=== PATIENT | female | born 1935 | race Caucasian/White ===

== ENCOUNTER → 2016-09-24 | Outpatient (CLI) | payer MEDICARE, OTHER | LOC: RAD 15:15 | PROVIDERS: ATTEND Internal Medicine | DX: C34.31 Malignant neoplasm of lower lobe, right bronchus or lung (principal) | CPT/HCPCS: 78815; A9552 ==

== ENCOUNTER → 2016-12-22 | Outpatient (CLI) | payer MEDICARE, OTHER | LOC: RAD 07:14 | PROVIDERS: ATTEND Internal Medicine | DX: C34.31 Malignant neoplasm of lower lobe, right bronchus or lung (principal) | CPT/HCPCS: 71250 ==

== ENCOUNTER → 2017-01-14 | Outpatient (CLI) | payer MEDICARE, OTHER ==
--- NOTE | 2017-01-15 09:09 | RADIOLOGY REPORT (SQ) ---
EXAM DESCRIPTION: PET CT SKULL/THIGH COMPLETED DATE/TIME: 01/14/2017 8:12 pm REASON FOR STUDY: LUNG CANCER C34.31 MALIGNANT NEOPLASM OF LOWER LOBE, RIGHT BRONCHUS OR L COMPARISON: PET-CT 09/24/2016, 06/18/2016, 02/13/2016 CT chest 12/22/2016 RADIONUCLIDE AND DOSE: 10 mCi F18 FDG The route of agent administration: Intravenous FASTING BLOOD SUGAR: 94 mg/dl CONTRAST TYPE AND DOSE: No CT contrast given. TECHNIQUE: Blood glucose level was verified. Above dose of FDG was injected intravenously. 2-D seg mented attenuation correction images were obtained from the base of the skull to the midthighs. Nonc ontrast CT images were obtained for attenuation correction and fusion with emission images. CT image s were performed without oral or intravenous contrast and are not sensitive for parenchymal lesions. A series of overlapping emission PET images were obtained. Images reviewed and manipulated at [facility] work station by the radiologist. Images stored on PACS. LIMITATIONS: None. FINDINGS: HEAD AND NECK: No areas of abnormal metabolic activity in the soft tissues of the head and neck. Non metabolic 3 x 2.4 cm left lower pole thyroid nodule. CHEST: Patient has an area of lung base consolidation with adjacent radiotherapy treatment markers ju st above the right hemidiaphragm. This area has SUV of 2.2 which is similar compared to prior PET-CT 09/24/2016. There is a 12 mm nodule just above the right hemidiaphragm in the right posterior costophrenic sulcus on image 104. This is non metabolic. There is an new 9 mm nodule in the posterior aspect right upper lobe on axial image 69 with SUV 2.8. No right or left pleural effusions. No pneumothorax. No hilar or mediastinal metabolic adenopathy. Heavily calcified aortic valve, coronary arteries, and thoracic aorta. ABDOMEN AND PELVIS: No areas of abnormal metabolic activity in the abdomen or pelvis. Expected physi ologic activity is present in the genitourinary system and bowel. PROXIMAL LOWER EXTREMITIES: No areas of abnormal metabolic activity in the soft tissues of the lower extremities. BONES: No increased metabolic activity over the skeletal system worrisome for metastatic disease ADDITIONAL CT FINDINGS: Old kyphoplasties in the lower thoracic spine, calcified gallstones, hysterec veronica, colon diverticuli, atherosclerotic abdominal aortic calcification. Old cervical fusion hardwar e. OTHER: Blood pool activity SUV 1.9, liver activity SUV 2.4 IMPRESSION: Similar appearance of the post radiotherapy treatment changes in the right lower lobe. Fuzzy 9 mm alveolar nodule axial image 69 with SUV 2.8. This would be difficult to biopsy under CT g uidance due to its close proximity to the scapula. This is larger than on 09/24/2016 with increased a ctivity as compared to prior PET-CT. Non metabolic 12 mm nodule just above the right hemidiaphragm TECHNICAL DOCUMENTATION: JOB ID: [id number] [employer]- All Rights Reserved
== END ==
LOC: RAD 17:25
PROVIDERS: ATTEND Internal Medicine
DX: C34.31 Malignant neoplasm of lower lobe, right bronchus or lung (principal)
CPT/HCPCS: 78815; A9552

== ENCOUNTER → 2017-04-29 | Outpatient (CLI) | payer MEDICARE, OTHER ==
--- NOTE | 2017-04-30 09:36 | RADIOLOGY REPORT (SQ) ---
EXAM DESCRIPTION: PET CT SKULL/THIGH COMPLETED DATE/TIME: 04/29/2017 9:25 pm REASON FOR STUDY: LUNG CANCER C34.31 MALIGNANT NEOPLASM OF LOWER LOBE, RIGHT BRONCHUS OR L COMPARISON: 01/14/2017, 09/24/2016, and 06/18/2016. RADIONUCLIDE AND DOSE: 11.07 mCi F18 FDG The route of agent administration: Intravenous FASTING BLOOD SUGAR: 123 mg/dl CONTRAST TYPE AND DOSE: No CT contrast given. TECHNIQUE: Blood glucose level was verified. Above dose of FDG was injected intravenously. 2-D seg mented attenuation correction images were obtained from the base of the skull to the midthighs. Nonc ontrast CT images were obtained for attenuation correction and fusion with emission images. CT image s were performed without oral or intravenous contrast and are not sensitive for parenchymal lesions. A series of overlapping emission PET images were obtained. Images reviewed and manipulated at [facility] work station by the radiologist. Images stored on PACS. LIMITATIONS: None. FINDINGS: HEAD AND NECK: No areas of abnormal metabolic activity in the soft tissues of the head and neck. CHEST: Again seen is a 9 mm nodule in the posterior right upper lobe with mean SUV 2.28. Prior value 2.8. Stable nodule in the right lung base at the costophrenic sulcus, non metabolic. Stable post t reatment changes in the right lower lobe with mean SUV value 1.57. Prior value 2.2. No new pulmonar y lesions. ABDOMEN AND PELVIS: No areas of abnormal metabolic activity in the abdomen or pelvis. Expected physi ologic activity is present in the genitourinary system and bowel. PROXIMAL LOWER EXTREMITIES: No areas of abnormal metabolic activity in the soft tissues of the lower extremities. BONES: No abnormal metabolic activity in the visualized skeleton. ADDITIONAL CT FINDINGS: Stable non metabolic nodule in the left lobe of the thyroid with coarse calci fications. Gallstones. Colonic diverticulosis. Surgical changes in the spine with hardware and sima or kyphoplasty. OTHER: No other significant findings. IMPRESSION: 1. STABLE APPEARANCE OF THE CHEST. POST TREATMENT CHANGES IN THE RIGHT LOWER LOBE UNCHANGED. PREVIO USLY DESCRIBED 9 MM NODULE IN THE RIGHT UPPER LOBE ALSO UNCHANGED. NO PROGRESSION OR NEW LESIONS IN THE CHEST. 2. NO ABNORMAL FINDINGS ON PET IMAGING OF THE HEAD, NECK, ABDOMEN, OR PELVIS. 3. OTHER CT FINDINGS ABOVE ARE STABLE. TECHNICAL DOCUMENTATION: JOB ID: [id number] [facility] [employer]- All Rights Reserved
== END ==
LOC: RAD 16:43
PROVIDERS: ATTEND Internal Medicine
DX: C34.31 Malignant neoplasm of lower lobe, right bronchus or lung (principal)
CPT/HCPCS: 78815; A9552

== ENCOUNTER → 2017-05-15 | Outpatient (CLI) | payer MEDICARE, OTHER ==
[2017-05-15 09:10] LABS: ABSOLUTE EOSINOPHILS # (AUTO) 0.2 10^3/uL (0.0-0.6); ABSOLUTE LYMPHOCYTES (AUTO) 1.1 10^3/uL (0.5-4.7); ABSOLUTE MONOCYTES (AUTO) 0.5 10^3/uL (0.1-1.4); ABSOLUTE NEUT (AUTO) 2.6 10^3/uL (1.7-8.2); BASOPHILS % (AUTO) 0.8 % (0-2); EOSINOPHILS % (AUTO) 4.8 % (0-6); HEMATOCRIT 35.2 % (36.0-47.0); HEMOGLOBIN 12.7 g/dL (12.0-15.5); HGB HCT DIFFERENCE 2.9; LYMPHOCYTES % (AUTO) 24.1 % (13-45); MEAN CORPUSCULAR HGB CONC 36.2 g/dL (32.0-36.0); MEAN CORPUSCULAR VOLUME 91 fl (80-97); MONOCYTES % (AUTO) 11.1 % (3-13); RED BLOOD COUNT 3.85 10^6/uL (3.72-5.28); RED CELL DISTRIBUTION WIDTH 12.8 % (11.5-14.0); SEGMENTED NEUTROPHILS % (AUTO) 59.2 % (42-78); WHITE BLOOD COUNT 4.5 10^3/uL (4.0-10.5)
[2017-05-15 09:31] LABS: ALANINE AMINOTRANSFERASE 28 U/L (9-52); ALBUMIN 4.1 g/dL (3.5-5.0); ALKALINE PHOSPHATASE 37 U/L (38-126); ANION GAP 9 (5-19); ASPARTATE AMINO TRANSFERASE 23 U/L (14-36); BILIRUBIN,DIRECT 0.3 mg/dL (0.0-0.4); BILIRUBIN,TOTAL 0.8 mg/dL (0.2-1.3); BLOOD UREA NITROGEN 24 mg/dL (7-20); CARBON DIOXIDE 26 mmol/L (22-30); CHLORIDE 107 mmol/L (98-107); CHOLESTEROL 236.33 mg/dL (0-200); CREATININE RESULT 0.85 mg/dL (0.52-1.25); Direct HDL 55 mg/dL (>40); GLUCOSE 92 mg/dL (75-110); POTASSIUM 3.9 mmol/L (3.6-5.0); SODIUM 142.2 mmol/L (137-145); TOTAL PROTEIN 6.6 g/dL (6.3-8.2); TRIGLYCERIDES 81 mg/dL (<150)
[2017-05-15 09:42] LABS: DIRECT LDL 152 mg/dL (<100)
== END ==
LOC: OD 08:25
PROVIDERS: ATTEND Internal Medicine
DX: E11.9 Type 2 diabetes mellitus without complications (principal); I10 Essential (primary) hypertension; Z79.899 Other long term (current) drug therapy; D51.9 Vitamin B12 deficiency anemia, unspecified; C34.31 Malignant neoplasm of lower lobe, right bronchus or lung; M15.9 Polyosteoarthritis, unspecified
CPT/HCPCS: 36415; 80053; 80061; 82306; 85025

== ENCOUNTER 2017-09-07 23:16 | Emergency (ER) | payer MEDICARE, OTHER ==
[2017-09-08] MEDS ORDERED: DIPH/PERTUSS(ACELL)/TETANUS VAC/PF 0.5 ML SYR (>=10YO) IM ONE (00:26)
[2017-09-08] MEDS ORDERED: LIDOCAINE 1% INJ-PF (10 MG/ML) 30 ML SDV INJ ONE (00:26)
[2017-09-08] MEDS ORDERED: NORMAL SALINE 500 ML IV ONE (00:27)
--- NOTE | 2017-09-08 00:29 | ER Document Report ---
ED Medical Screen (RME) - General Chief Complaint: Laceration Stated Complaint: FALL LACERATION Time Seen by Provider: 09/08/17 00:25 Mode of Arrival: Wheelchair Information source: Patient Notes: Patient presents stating that her blood pressure has been running low at home for the past several weeks. Patient denies any lightheadedness or dizziness. Patient states that her feet got tangled up causing her to stumble and fall. Patient denies any loss of consciousness, nausea or vomiting. Patient with facial bruising and laceration to right brow. Patient complains of right elbow tenderness. hx: Diabetes, hypertension I have greeted and performed a rapid initial assessment of this patient. A comprehensive ED assessment and evaluation of the patient, analysis of test results and completion of the medical decision making process will be conducted by additional ED providers. TRAVEL OUTSIDE OF THE [place] IN LAST 30 DAYS: No - Related Data Allergies/Adverse Reactions: cerivastatin [Cerivastatin] Allergy (Verified 09/15/13 12:37) enalapril maleate [From Vasotec] Allergy (Verified 09/15/13 12:37) enalaprilat dihydrate [From Vasotec] Allergy (Verified 09/15/13 12:37) fexofenadine HCl [From Amelia] Allergy (Verified 09/15/13 12:37) hydromorphone HCl [From Dilaudid] Allergy (Verified 09/15/13 12:37) lovastatin [From Advicor] Allergy (Verified 09/15/13 12:37) niacin [From Advicor] Allergy (Verified 09/15/13 12:37) oxycodone [Oxycodone] Allergy (Verified 09/15/13 12:37) oxycodone HCl [From Tylox] Allergy (Verified 09/15/13 12:37) simvastatin [Simvastatin] Allergy (Verified 09/15/13 12:37) astimizde Allergy (Uncoded 09/15/13 12:37) Past Medical History - Social History Frequency of alcohol use: None Drug Abuse: None - Past Medical History Cardiac Medical History: Reports: Hx Congestive Heart Failure, Hx Heart Attack - AMI 1989, Hx Hypertension Endocrine Medical History: Reports: Hx Diabetes Mellitus Type 2 Renal/ Medical History: Denies: Hx Peritoneal Dialysis Past Surgical History: Reports: Hx Hysterectomy, Hx Orthopedic Surgery - back sx - Immunizations Hx Diphtheria, Pertussis, Tetanus Vaccination: Yes Physical Exam - Vital signs Vitals: Temp Pulse BP Pulse Ox 97.6 F 74 86/64 L 99 09/08/17 00:08 09/08/17 00:08 09/08/17 00:08 09/08/17 00:08 - Neurological Cognition: Normal [place] Coma Scale Eye Opening: Spontaneous [place] Coma Scale Verbal: Oriented [place] Coma Scale Motor: Obeys Commands Mar[place] Coma Scale Total: 15 - Skin Skin irregularity: Laceration - Facial laceration to right brow Course - Vital Signs Vital signs: Temp Pulse Resp BP Pulse Ox 97.6 F 74 86/64 L 99 09/08/17 00:08 09/08/17 00:08 09/08/17 00:08 09/08/17 00:08
[2017-09-08 01:33] LABS: APPEARANCE,URINE CLOUDY; BILIRUBIN,URINE NEGATIVE (NEGATIVE); CALCIUM OXALATE CRYSTALS,URINE MODERATE /HPF; COLOR,URINE AMBER; GLUCOSE, URINE NEGATIVE (NEGATIVE); KETONES,URINE NEGATIVE (NEGATIVE); LEUKOCYTE ESTERASE,URINE SMALL (NEGATIVE); NITRITE,URINE POSITIVE (NEGATIVE); PROTEIN,URINE 100 mg/dL (NEGATIVE); URINE SPECIFIC GRAVITY 1.019; UROBILINOGEN,URINE NEGATIVE mg/dL (<2.0)
--- NOTE | 2017-09-08 01:34 | RADIOLOGY REPORT (SQ) ---
EXAM DESCRIPTION: CT HEAD WITHOUT CLINICAL HISTORY: fall, head injury COMPARISON: None available TECHNIQUE: Axial CT of the head obtained from the skull apex to the skull base without contrast. FINDINGS: No acute intracranial hemorrhage identified. No mass, mass effect, shift of the midline, abnormal extra-axial fluid collection or CT evidence of acute ischemic change identified. The ventricular system and sulcal spaces are mildly enlarged compatible with mild cerebral atrophy. Scattered areas of hypodensity throughout the supratentorial white matter are nonspecific and may be related to chronic small vessel ischemic change. The visualized paranasal sinuses and the mastoids are clear. No skull fracture identified. Visualized orbits and globes are unremarkable. Atherosclerotic calcification of the intracranial internal carotid arteries. Contusion in the right frontal scalp subcutaneous soft tissues. DLP: 1162.97 mGy-cm IMPRESSION: 1. No acute intracranial abnormality by CT criteria. This exam was performed according to our departmental dose-optimization program, which includes automated exposure control, adjustment of the mA and/or kV according to patient size and/or use of iterative reconstruction technique.
[2017-09-08 01:37] LABS: ALANINE AMINOTRANSFERASE 26 U/L (9-52); ALBUMIN 4.5 g/dL (3.5-5.0); ALKALINE PHOSPHATASE 36 U/L (38-126); ANION GAP 12 (5-19); ASPARTATE AMINO TRANSFERASE 29 U/L (14-36); BILIRUBIN,DIRECT 0.1 mg/dL (0.0-0.4); BILIRUBIN,TOTAL 0.5 mg/dL (0.2-1.3); BLOOD UREA NITROGEN 22 mg/dL (7-20); CALCIUM 10.6 mg/dL (8.4-10.2); CARBON DIOXIDE 23 mmol/L (22-30); CHLORIDE 107 mmol/L (98-107); GLUCOSE 134 mg/dL (75-110); MAGNESIUM 1.9 mg/dL (1.6-2.3); POTASSIUM 4.2 mmol/L (3.6-5.0); SODIUM 141.6 mmol/L (137-145); TOTAL PROTEIN 7.1 g/dL (6.3-8.2)
--- NOTE | 2017-09-08 01:39 | RADIOLOGY REPORT (SQ) ---
EXAM DESCRIPTION: CT CERVICAL SPINE WITHOUT CLINICAL HISTORY: fall, head injury COMPARISON: None available TECHNIQUE: Axial CT of the cervical spine obtained without contrast. FINDINGS: Prior anterior plate and screw fixation with fusion at C4/5. The atlantoaxial, atlantodental, and occipitoatlantal intervals are preserved. No fracture identified. Vertebral body height preserved. Prevertebral soft tissues are unremarkable. Moderate to severe loss of intervertebral disc height at all levels of the visualized cervical spine with endplate spondylosis and uncovertebral spurring. 3 mm retrolisthesis of C3 over C4 is likely degenerative. Moderate bilateral osseous neural foraminal narrowing at this level. No definite central canal narrowing. Visualized skull base is intact. No fracture of the visualized facial bones. Visualized mastoid air cells and paranasal sinuses are well aerated. 2.0 cm left thyroid nodule. No cervical lymphadenopathy. No pneumothorax in the visualized lung apices. DLP: 332.95 mGy-cm IMPRESSION: 1. No acute fracture or subluxation of the cervical spine. 2. Moderate to severe multilevel degenerative change of the cervical spine. 3. There is a 2.0 cm left thyroid nodule. Thyroid ultrasound recommended. This exam was performed according to our departmental dose-optimization program, which includes automated exposure control, adjustment of the mA and/or kV according to patient size and/or use of iterative reconstruction technique.
--- NOTE | 2017-09-08 01:43 | RADIOLOGY REPORT (SQ) ---
EXAM DESCRIPTION: CT FACIAL AREA WITHOUT CLINICAL HISTORY: fall, head injury COMPARISON: None available TECHNIQUE: Axial CT of the facial bones obtained without contrast. FINDINGS: Visualized orbital floors and greene are intact. Paranasal sinuses are well aerated. Nondisplaced right nasal bone fracture. Maxillary antral greene are intact. Maxillary hard palate is intact. The zygomatic processes and pterygoid plates are intact. No mandibular fracture identified. No mandibular condylar dislocation. Contusion in the right supraorbital frontal subcutaneous scalp soft tissues. The globes and intraconal contents are unremarkable. No lymphadenopathy in the neck soft tissues. No definite soft tissue abnormality identified. Degenerative change of the cervical spine with postoperative change at C3/4. DLP: 566.14 mGy-cm IMPRESSION: 1. Nondisplaced right nasal bone fracture. 2. Contusion in the right supraorbital subcutaneous soft tissues. This exam was performed according to our departmental dose-optimization program, which includes automated exposure control, adjustment of the mA and/or kV according to patient size and/or use of iterative reconstruction technique.
--- NOTE | 2017-09-08 01:58 | RADIOLOGY REPORT (SQ) ---
EXAM DESCRIPTION: CHEST PA/LAT CLINICAL HISTORY: fall, hypotension COMPARISON: None. FINDINGS: Frontal and lateral views of the chest. Atherosclerotic calcification and tortuosity of thoracic aorta. Cardiomegaly. No consolidation, pneumothorax, or pleural effusion. Prior vertebroplasty is and partial visualization of postoperative change of the lumbar spine. No definite displaced rib fractures identified. Upper abdominal soft tissues are unremarkable. IMPRESSION: 1. No acute pulmonary process identified. Ready ulises.
--- NOTE | 2017-09-08 02:05 | RADIOLOGY REPORT (SQ) ---
EXAM DESCRIPTION: ELBOW RIGHT OVER 2 VIEWS CLINICAL HISTORY: fall, head injury COMPARISON: None. FINDINGS: 3 views of the right elbow. No acute fracture or dislocation. No joint effusion. Osteopenia. IMPRESSION: No acute fracture or dislocation.
[2017-09-08 02:10] VITALS: BP 115/81
--- NOTE | 2017-09-08 02:25 | ER Document Report ---
ED General - General Chief Complaint: Laceration Stated Complaint: FALL LACERATION Time Seen by Provider: 09/08/17 00:25 Mode of Arrival: Wheelchair Notes: Patient is an 81-year-old woman who presents after having a mechanical fall just prior to arrival. Patient states she tripped over her own feet, fell forward striking her head, right elbow and right hernandez on the ground. She denies any loss of consciousness. No vomiting, weakness, numbness or confusion since the accident. She does note a dull, constant, throbbing pain over her right face and forehead where she sustained a laceration. She also notes a dull aching pain to her right elbow, worsened by range of motion. No recent history of similar injuries. She has not seen her primary doctor regarding today's concerns. She denies any cause other than tripping over her own feet as the etiology of her fall today. She reports that she chronically has low blood pressure and this is corroborated by her daughter. TRAVEL OUTSIDE OF THE [place] IN LAST 30 DAYS: No - Related Data Allergies/Adverse Reactions: cerivastatin [Cerivastatin] Allergy (Verified 09/15/13 12:37) enalapril maleate [From Vasotec] Allergy (Verified 09/15/13 12:37) enalaprilat dihydrate [From Vasotec] Allergy (Verified 09/15/13 12:37) fexofenadine HCl [From Amelia] Allergy (Verified 09/15/13 12:37) hydromorphone HCl [From Dilaudid] Allergy (Verified 09/15/13 12:37) lovastatin [From Advicor] Allergy (Verified 09/15/13 12:37) niacin [From Advicor] Allergy (Verified 09/15/13 12:37) oxycodone [Oxycodone] Allergy (Verified 09/15/13 12:37) oxycodone HCl [From Tylox] Allergy (Verified 09/15/13 12:37) simvastatin [Simvastatin] Allergy (Verified 09/15/13 12:37) astimizde Allergy (Uncoded 09/15/13 12:37) Past Medical History - General Information source: Patient - Social History Smoking Status: Former Smoker Frequency of alcohol use: None Drug Abuse: None Lives with: Family Family History: Reviewed & Not Pertinent Patient has suicidal ideation: No Patient has homicidal ideation: No - Past Medical History Cardiac Medical History: Reports: Hx Congestive Heart Failure, Hx Heart Attack - AMI 1989, Hx Hypertension Endocrine Medical History: Reports: Hx Diabetes Mellitus Type 2 Renal/ Medical History: Denies: Hx Peritoneal Dialysis Past Surgical History: Reports: Hx Hysterectomy, Hx Orthopedic Surgery - back sx - Immunizations Hx Diphtheria, Pertussis, Tetanus Vaccination: Yes Hx Pneumococcal Vaccination: 08/13/11 Review of Systems - Review of Systems Notes: Constitutional: Negative for fever. Eyes: Negative for visual changes. ENT: Positive for facial injury Cardiovascular: Negative for chest injury. Respiratory: Negative for shortness of breath. Gastrointestinal: Negative for abdominal injury. Genitourinary: Negative for genital injury Musculoskeletal: Negative for back injury. Skin: Positive for laceration/abrasions. Neurological: Positive for head injury. Physical Exam - Vital signs Vitals: Temp Pulse BP Pulse Ox 97.6 F 74 86/64 L 99 09/08/17 00:08 09/08/17 00:08 09/08/17 00:08 09/08/17 00:08 Interpretation: Hypotensive Notes: PHYSICAL EXAMINATION: GENERAL: Well-appearing, no acute distress. HEAD: Bruising over the right forehead and right maxillary sinus. There is a 2 cm laceration at the level of the eyebrow on the right. EYES: Pupils equal round and reactive to light, extraocular movements intact, sclera anicteric, conjunctiva are normal. ENT: nares patent, no oral pharyngeal trauma. No hemotympanum, no Miller's sign , no raccoon eyes. NECK: No midline cervical spine tenderness. Patient able to move their head to 45 bilaterally without any discomfort. LUNGS: Breath sounds clear to auscultation bilaterally and equal. No wheezes rales or rhonchi. HEART: Regular rate and rhythm without murmurs. CHEST WALL: No ecchymosis over the chest wall. ABDOMEN: Soft, nontender, normoactive bowel sounds. No guarding, no rebound. No abdominal bruising EXTREMITIES: Normal range of motion, no pitting or edema. No long bone deformities. BACK: No midline spinal tenderness, step-offs, or deformities. NEUROLOGICAL: Face symmetric. Tongue protrudes midline. Extraocular motions intact. Pupils are 2 mm and equally reactive. Normal speech. 5 out of 5 strength in both the distal and proximal upper and lower extremities bilaterally. Sensation is grossly intact throughout. Finger to nose testing normal. Pronator drift normal. PSYCH: Normal mood, normal affect. SKIN: Warm, Dry, normal turgor, laceration as above Course - Re-evaluation Re-evalutation: 09/08/17 02:21 Presentation of a well appearing elderly patient in no acute distress, vitals within normal limits after a mechanical fall. Patient denies a syncopal episode as the cause for today's fall. No focal neurologic deficits on exam, no evidence of basilar skull fracture on exam without evidence of hemotympanum, raccoon eyes, or periauricular hematoma. No papilledema. Patient is not on anticoagulation. GCS is 15. No loss of consciousness. No episodes of vomiting. However, based on patient's age a CT of the head has been obtained which is negative for any acute intracranial bleed. Likewise, patient was unable to be clinically cleared due to age by [place] cervical spine criteria. A CT of the cervical spine was also obtained and likewise is negative for any acute fracture. No indication for further imaging of the cervical spine. Patient was complaining of some mild right elbow pain and an x-ray of this area is unremarkable. No additional extremity injuries or complaints. Chest and abdominal exam are benign without any focal tenderness, shortness of breath, or bruising over the chest or abdominal wall. Patient has no flank tenderness. Only notable finding on examination is a 2 cm laceration at the level of the eyebrow on the right which was able to be closed without difficulty with Dermabond. Of note, in triage there was some concern about patient's blood pressure. On recheck it is normal at 115/80. Patient's daughter at the bedside also notes the patient's blood pressure chronically runs in the 90s diastolic and there is nothing different about an 89 diastolic than what has been noted for the past several years. Patient's clinical history is very consistent with mechanical trip and fall and given that this patient chronically has mild hypotension at baseline, there is no indication for further workup. At this time will discharge with return precautions and follow- up recommendations. Verbal discharge instructions given a the bedside and opportunity for questions given. Medication warnings reviewed. Patient is in agreement with this plan and has verbalized understanding of return precautions and the need for primary care follow-up in the next 24-72 hours. - Vital Signs Vital signs: Temp Pulse Resp BP Pulse Ox 97.6 F 86 16 115/81 98 09/08/17 00:08 09/08/17 02:09 09/08/17 02:09 09/08/17 02:09 09/08/17 02:09 - Laboratory Result Diagrams: 09/08/17 00:48 Laboratory results interpreted by me: 09/08/17 09/08/17 00:48 00:48 BUN 22 H Glucose 134 H Calcium 10.6 H Alkaline Phosphatase 36 L Urine Protein 100 H Urine Nitrite POSITIVE H Ur Leukocyte Esterase SMALL H Urine Ascorbic Acid 40 H - Diagnostic Test Radiology reviewed: Image reviewed, Reports reviewed Radiology results interpreted by me: 09/08/17 02:22 CT head: No acute intracranial bleed 09/08/17 02:22 Right elbow x-ray: No acute fracture or dislocation - EKG Interpretation by Me Additional EKG results interpreted by me: 09/08/17 02:23 Sinus rhythm. Rate 65. No ST elevations or depressions. QTC is 441. Procedures - Laceration/Wound Repair Face Wound length (cm): 2 Wound's Depth, Shape: Superficial Laceration pre-procedure: Sterile PPE donned Wound explored: Clean Irrigated w/ Saline (mLs): 300 Wound Debrided: Minimal Wound Repaired With: Dermabond Discharge - Discharge Clinical Impression: Fall Qualifiers: Encounter type: initial encounter Qualified Code(s): W19.XXXA - Unspecified fall, initial encounter Facial laceration Qualifiers: Encounter type: initial encounter Qualified Code(s): S01.81XA - Laceration without foreign body of other part of head, initial encounter Head trauma Qualifiers: Encounter type: initial encounter Qualified Code(s): S09.90XA - Unspecified injury of head, initial encounter Injury of right elbow Qualifiers: Encounter type: initial encounter Qualified Code(s): S59.901A - Unspecified injury of right elbow, initial encounter Urinary tract infection Qualifiers: Urinary tract infection type: acute cystitis Hematuria presence: without hematuria Qualified Code(s): N30.00 - Acute cystitis without hematuria Condition: Good Disposition: HOME, SELF-CARE Additional Instructions: You have been seen in the Emergency Department (ED) today following a fall. Your workup today did not reveal any injuries that require you to stay in the hospital. Your scans are all normal today with exception of a small nasal bone fracture which will heal on its own. A cut on your forehead was closed with glue. You can expect, though, to be stiff and sore for the next several days. You can take Tylenol 1000 mg every 6 hours as needed for pain. You can apply a hot pack or electric heating pad to the sore areas. You can also use topical "Aspercreme with lidocaine" to sore areas as needed. Please follow up with your primary care doctor as soon as possible regarding today's ED visit and your recent accident. Call your doctor or return to the ED if you develop a sudden or severe headache , confusion, slurred speech, facial droop, weakness or numbness in any arm or leg, extreme fatigue, vomiting more than two times, severe abdominal pain, or other symptoms that concern you. Your urine shows findings consistent with a urinary tract infection. Please take all the antibiotics as directed even if your symptoms have improved. Please follow-up with your primary care physician as needed. Return to emergency room if you develop fever >101F, persistent vomiting, become lethargic , have severe pain in your sides, or any other symptoms that are concerning to you. Prescriptions: Cephalexin Monohydrate [Keflex 500 mg Capsule] 500 mg PO Q6H 5 Days capsule Referrals: JEMAL FONG MD [Primary Care Provider] - Follow up as needed
[2017-09-08] MEDS ORDERED: CEPHALEXIN 500 MG CAPSULE PO ONE (02:26)
--- NOTE | 2017-09-09 11:56 | EKG REPORT ---
SEVERITY:- ABNORMAL ECG - SINUS RHYTHM PROBABLE LEFT ATRIAL ABNORMALITY PROBABLE LEFT VENTRICULAR HYPERTROPHY ABNORMAL T, CONSIDER ISCHEMIA, INFERIOR LEADS : Confirmed by: Ruba Brandt MD 09-Sep-2017 11:55:51
== END 2017-09-08 02:43 | disposition home or self-care (01) ==
LOC: ER 23:16
PROC: 0HQ1XZZ Repair Face Skin, External Approach (ICD-10-PCS; principal; 2017-09-07)
DX: S01.81XA Laceration without foreign body of other part of head, initial encounter (principal); S09.90XA Unspecified injury of head, initial encounter; S59.901A Unspecified injury of right elbow, initial encounter; N30.00 Acute cystitis without hematuria; M25.521 Pain in right elbow; M79.604 Pain in right leg; W19.XXXA Unspecified fall, initial encounter; Z87.891 Personal history of nicotine dependence
CPT/HCPCS: 36415; 70450; 70486; 71046; 72125; 80053; 81001; 83735; 84484; 93005; 93010; 99284

== ENCOUNTER → 2017-10-14 | Outpatient (CLI) | payer MEDICARE, OTHER ==
--- NOTE | 2017-10-15 08:43 | RADIOLOGY REPORT (SQ) ---
EXAM DESCRIPTION: PET CT SKULL/THIGH COMPLETED DATE/TIME: 10/14/2017 7:58 pm REASON FOR STUDY: LUNG CANCER C34.31 MALIGNANT NEOPLASM OF LOWER LOBE, RIGHT BRONCHUS OR L COMPARISON: 04/29/2017 and 09/24/2016. RADIONUCLIDE AND DOSE: 10.0 mCi F18 FDG The route of agent administration: Intravenous FASTING BLOOD SUGAR: 92 mg/dl CONTRAST TYPE AND DOSE: No CT contrast given. TECHNIQUE: Blood glucose level was verified. Above dose of FDG was injected intravenously. 2-D seg mented attenuation correction images were obtained from the base of the skull to the midthighs. Nonc ontrast CT images were obtained for attenuation correction and fusion with emission images. CT image s were performed without oral or intravenous contrast and are not sensitive for parenchymal lesions. A series of overlapping emission PET images were obtained. Images reviewed and manipulated at [facility] work station by the radiologist. Images stored on PACS. LIMITATIONS: None. FINDINGS: HEAD AND NECK: No areas of abnormal metabolic activity in the soft tissues of the head and neck. CHEST: Ill-defined 8 mm nodule in the posterior right upper lobe. Mean SUV value 3.47 with prior nikolas ue 2.28. Stable treatment changes in the right lower lobe. Mean SUV value 1.66. Prior value 1.57. A few small, 2-3 mm, pulmonary nodules in both lungs are stable and unchanged. No new nodules or ma sses in the lungs. There is a new lymph node inferior to the right hilum, measuring 5 mm. Mean SUV value 4.71. ABDOMEN AND PELVIS: No areas of abnormal metabolic activity in the abdomen or pelvis. Expected physi ologic activity is present in the genitourinary system and bowel. PROXIMAL LOWER EXTREMITIES: No areas of abnormal metabolic activity in the soft tissues of the lower extremities. BONES: There is a new area of mild sclerosis at the level of T8-T9. Mean SUV value 4.51. ADDITIONAL CT FINDINGS: Stable additional CT findings. Nodule in the left lobe of the thyroid with c oarse calcifications. Trace pericardial effusion. Gallstones. Surgical changes in the lumbar spine with hardware and prior kyphoplasty. Dense vascular calcifications. Colonic diverticulosis. OTHER: No other significant findings. IMPRESSION: 1. ILL-DEFINED NODULE IN THE POSTERIOR RIGHT UPPER LOBE UNCHANGED IN SIZE BUT HAS SLIGHTLY HIGHER ACT IVITY AND SUV VALUE ABOVE. TREATMENT CHANGES IN THE RIGHT LOWER LOBE ARE STABLE WITH NO UNUSUAL M ETABOLIC ACTIVITY. THERE IS A NEW RIGHT INFRAHILAR LYMPH NODE WITH MEAN SUV VALUE 4.71 CONCERNING FO R METASTATIC ADENOPATHY. 2. NEW AREA OF ILL-DEFINED SCLEROSIS AT THE T8-T9 VERTEBRAL LEVEL WITH MEAN SUV VALUE 4.51. THIS COU LD BE RELATED TO DEGENERATIVE CHANGES, POSSIBLY ENDPLATE COMPRESSION SECONDARY TO OSTEOPOROSIS. META STATIC INVOLVEMENT CANNOT BE EXCLUDED. WOULD CONSIDER MRI OF THE THORACIC SPINE TO FURTHER CHARACTER IZE THIS FINDING. 3. NO OTHER SIGNIFICANT FINDING ON PET IMAGING. STABLE ADDITIONAL CT FINDINGS. TECHNICAL DOCUMENTATION: JOB ID: [id number] [employer]- All Rights Reserved Reading location - IP/workstation name: [email or web address]
== END ==
LOC: RAD 14:25
PROVIDERS: ATTEND Internal Medicine
DX: C34.31 Malignant neoplasm of lower lobe, right bronchus or lung (principal)
CPT/HCPCS: 78815; A9552

== ENCOUNTER 2018-01-18 20:07 | Emergency (ER) | payer MEDICARE, OTHER ==
--- NOTE | 2018-01-18 21:09 | ER Document Report ---
ED General - General Mode of Arrival: Ambulatory Information source: Patient TRAVEL OUTSIDE OF THE [place] IN LAST 30 DAYS: No - General Chief Complaint: Head Injury Stated Complaint: FALL/FACIAL LACERATION Time Seen by Provider: 01/18/18 20:51 Notes: Patient is an 82 year old female with hypertension and diabetes presents to the emergency department complaining of a laceration to her right eye due to a fall. Patient states she was walking in her hallway when she tripped over her own feet, fell forward and hit her head. Patient she is currently having some pain above her right eye. Patient denies any loss of consciousness, neck pain, chest pain, trouble breathing, dizziness, vomiting, or confusion. Patient is currently prescribed Aspirin. (GABBIE NORWOOD) - Related Data Allergies/Adverse Reactions: cerivastatin [Cerivastatin] Allergy (Verified 09/15/13 12:37) enalapril maleate [From Vasotec] Allergy (Verified 09/15/13 12:37) enalaprilat dihydrate [From Vasotec] Allergy (Verified 09/15/13 12:37) fexofenadine HCl [From Amelia] Allergy (Verified 09/15/13 12:37) hydromorphone HCl [From Dilaudid] Allergy (Verified 09/15/13 12:37) lovastatin [From Advicor] Allergy (Verified 09/15/13 12:37) niacin [From Advicor] Allergy (Verified 09/15/13 12:37) oxycodone [Oxycodone] Allergy (Verified 09/15/13 12:37) oxycodone HCl [From Tylox] Allergy (Verified 09/15/13 12:37) simvastatin [Simvastatin] Allergy (Verified 09/15/13 12:37) astimizde Allergy (Uncoded 09/15/13 12:37) Past Medical History - General Information source: Patient - Social History Smoking Status: Former Smoker Cigarette use (# per day): No Chew tobacco use (# tins/day): No Smoking Education Provided: No Frequency of alcohol use: None Family History: Reviewed & Not Pertinent - Past Medical History Cardiac Medical History: Reports: Hx Congestive Heart Failure, Hx Heart Attack - AMI 1989, Hx Hypertension Endocrine Medical History: Reports: Hx Diabetes Mellitus Type 2 Past Surgical History: Reports: Hx Hysterectomy, Hx Orthopedic Surgery - back sx - Immunizations Hx Diphtheria, Pertussis, Tetanus Vaccination: Yes Hx Pneumococcal Vaccination: 08/13/11 Review of Systems - Review of Systems Constitutional: No symptoms reported EENT: No symptoms reported Cardiovascular: No symptoms reported Respiratory: No symptoms reported Gastrointestinal: No symptoms reported Genitourinary: No symptoms reported Female Genitourinary: No symptoms reported Musculoskeletal: See HPI Skin: See HPI Hematologic/Lymphatic: No symptoms reported Neurological/Psychological: No symptoms reported -: Yes All other systems reviewed and negative Physical Exam - Vital signs Vitals: Pulse Ox 97 01/18/18 20:57 - Notes Notes: GENERAL: Alert, interacts well. No acute distress. HEAD: Normocephalic. 1.5 cm laceration on the lateral aspect to the right eyebrow, avulsion like skin flap, pried apart with pressure, curvilinear. Ecchymosis to the right cheek. EYES: Pupils equal, round, and reactive to light. Extraocular movements intact. ENT: Oral mucosa moist, tongue midline. NECK: Full range of motion. Supple. Trachea midline. LUNGS: Trace expiratory wheezing, no rales or rhonchi. No respiratory distress. HEART: Tachycardic. Regular rate and rhythm. No murmurs, gallops, or rubs. ABDOMEN: Soft, non-tender. Non-distended. Bowel sounds present in all 4 quadrants. EXTREMITIES: Moves all 4 extremities spontaneously.Trace pitting edema to the BLE, radial and dorsalis pedis pulses 2/4 bilaterally. No cyanosis. NEUROLOGICAL: Alert and oriented x3. Normal speech. Cranial nerves II through XII grossly intact. Biceps and patellar DTRs 2+ bilaterally. Finger to nose and heel to hernandez testing intact. PSYCH: Normal affect, normal mood. SKIN: Warm, dry, normal turgor. (GABBIE NORWOOD) Course - Re-evaluation Re-evalutation: 01/18/18 21:56 CT scan negative for intracranial hemorrhage, wound was washed, LET was applied , Dermabond was applied without difficulty. 01/18/18 21:57 01/18/18 21:57 Last tetanus vaccine was 09/08/2017. Patient will be discharged home. 01/18/18 21:59 Blood pressure normalized without any intervention. Daughter states that this has happened several times before. Patient is completely asymptomatic with her hypotension and it has now resolved as has the tachycardia. Patient will be discharged home without any further blood work or workup for this. They are aware that she should return if she becomes confused, vomits, dizzy, lightheaded or has any new or concerning symptoms. Discharge to home. (MARIA D ESPINOZA) - Vital Signs Vital signs: Temp Pulse Resp BP Pulse Ox 18 109/72 96 01/18/18 22:01 01/18/18 22:01 01/18/18 22:01 Discharge - Discharge Clinical Impression: Fall in elderly patient Laceration of eyebrow, right Qualifiers: Encounter type: initial encounter Qualified Code(s): S01.111A - Laceration without foreign body of right eyelid and periocular area, initial encounter Closed head injury Qualifiers: Encounter type: initial encounter Qualified Code(s): S09.90XA - Unspecified injury of head, initial encounter Condition: Stable Disposition: HOME, SELF-CARE Additional Instructions: Skin Adhesive Closure Skin adhesive (such as Dermabond) is a quick-drying glue that remains slightly flexible while it holds wound edges together. It can substitute for stitches on some cuts. The film will usually fall off the skin after 5 to 10 days. Keep the wound area clean and dry. Do not soak or scrub the wound. Don't swim. You can shower briefly after 24 hours. Gently blot the area dry with a soft towel. Don't apply ointments. If there is a dressing, change it immediately if it gets wet. Do not place tape directly over the adhesive film, because the tape may pull the film off your skin as you remove it. Don't bump the wound area. If there's risk of injury, keep the area well- padded. Avoid stretching of the skin. Do not scratch or pick at the adhesive film. Avoid prolonged exposure to sunlight or tanning lamps. Return if there is increasing pain, swelling, redness, or drainage, or if the wound edges seem to open or separate. Concussion You have suffered a concussion -- a temporary loss of certain brain functions due to a mild brain injury. The recovery is usually rapid and complete. The temporary problems occurring with a concussion can include loss of consciousness, dizziness, nausea, vomiting, and confusion. Repeat concussions can cause brain damage. In the future, avoid activities that will cause a blow to your head. Wear a helmet for sports such as snowboarding, biking, or skating. It's important that someone be with you for the first 24 hours. During this time, do not exercise or drive a vehicle. Do not take any pain medication stronger than acetaminophen unless prescribed by the physician. Any significant changes should be reported immediately to the physician. Signs of a problem may include: (1) Mental confusion (2) Incoordination or staggering (3) Repeated or forceful vomiting (4) Clear or bloody drainage from ear, mouth, or nose (5) Severe headache, not relieved by acetaminophen or prescribed pain medication (6) Failure to improve in 24 hours Referrals: TAINA TOSCANO MD [ACTIVE STAFF] - Follow up as needed Scribe Attestation: 01/18/18 23:17 I personally performed the services described in the documentation, reviewed and edited the documentation which was dictated to the scribe in my presence, and it accurately records my words and actions. (MARIA D ESPINOZA) Scribe Documentation - Scribe Written by Chris:: Chris Marcano, 01/18/2018 21:44 acting as scribe for :: Lyle
[2018-01-18] MEDS ORDERED: LIDOCAINE 4%/TETRACAINE 0.5%/EPI 0.18% 5 ML TOPICAL SOLN TOP ONE (21:16)
--- NOTE | 2018-01-18 21:39 | RADIOLOGY REPORT (SQ) ---
EXAM DESCRIPTION: CT HEAD WITHOUT COMPLETED DATE/TIME: 01/18/2018 9:28 pm REASON FOR STUDY: fell, hit head, on plavix COMPARISON: 09/08/2017 TECHNIQUE: Axial images acquired through the brain without intravenous contrast. Images reviewed wi th bone, brain and subdural windows. Images stored on PACS. All CT scanners at this facility use dose modulation, iterative reconstruction, and/or weight based d osing when appropriate to reduce radiation dose to as low as reasonably achievable (ALARA). [facility]: Dose Right [facility]: CareDose [facility]: Dose Right [facility]: Teradose 4D [facility]: [employer] RADIATION DOSE: CT Rad equipment meets quality standard of care and radiation dose reduction techniq ues were employed. CTDIvol: 53.2 mGy. DLP: 884 mGy-cm. mGy. LIMITATIONS: None. FINDINGS: VENTRICLES: Prominent. CEREBRUM: No masses. No hemorrhage. No midline shift. Areas of low density in the white matter mos t likely due to chronic micro-vascular ischemic change. No evidence for acute infarction. CEREBELLUM: No masses. No hemorrhage. No alteration of density. No evidence for acute infarction. EXTRAAXIAL SPACES: Mild age-related involutional change. No fluid collections. No masses. ORBITS AND GLOBE: No intra- or extraconal masses. Normal contour of globe without masses. CALVARIUM: No fracture. PARANASAL SINUSES: No fluid or mucosal thickening. SOFT TISSUES: No mass or hematoma. OTHER: No other significant finding. IMPRESSION: NO ACUTE INTRACRANIAL PROCESS. EVIDENCE OF ACUTE STROKE: NO. TECHNICAL DOCUMENTATION: JOB ID: [id number] Quality ID # [id number]: Final reports with documentation of one or more dose reduction techniques (e.g., Au tomated exposure control, adjustment of the mA and/or kV according to patient size, use of iterative reconstruction technique) 2010 [employer]- All Rights Reserved Reading location - IP/workstation name: [email or web address]
--- NOTE | 2018-01-18 21:49 | EKG REPORT ---
SEVERITY:- ABNORMAL ECG - SINUS TACHYCARDIA MULTIPLE VENTRICULAR PREMATURE COMPLEXES REPOL ABNRM SUGGESTS ISCHEMIA, DIFFUSE LEADS : Confirmed by: Ruba Brandt MD 18-Jan-2018 21:48:17
[2018-01-18 22:58] VITALS: BP 109/72
== END 2018-01-18 22:30 | disposition home or self-care (01) ==
LOC: ER 20:07
PROC: 0HQ1XZZ Repair Face Skin, External Approach (ICD-10-PCS; principal; 2018-01-18)
DX: S01.111A Laceration without foreign body of right eyelid and periocular area, initial encounter (principal); S09.90XA Unspecified injury of head, initial encounter; W01.0XXA Fall on same level from slipping, tripping and stumbling without subsequent striking against object, initial encounter; Z79.82 Long term (current) use of aspirin; Z88.6 Allergy status to analgesic agent; Z87.891 Personal history of nicotine dependence; I50.9 Heart failure, unspecified; I25.2 Old myocardial infarction; I10 Essential (primary) hypertension; E11.9 Type 2 diabetes mellitus without complications; Z90.710 Acquired absence of both cervix and uterus
CPT/HCPCS: 70450; 93005; 93010; 99284; J3490

== ENCOUNTER → 2018-01-20 | Outpatient (CLI) | payer MEDICARE, OTHER ==
--- NOTE | 2018-01-21 07:20 | RADIOLOGY REPORT (SQ) ---
EXAM DESCRIPTION: PET CT SKULL/THIGH COMPLETED DATE/TIME: 01/20/2018 6:51 pm REASON FOR STUDY: LUNG CANCER C34.31 MALIGNANT NEOPLASM OF LOWER LOBE, RIGHT BRONCHUS OR L COMPARISON: PET-CT 02/13/2016, 01/14/2017, 04/19/2017, 10/14/2017 RADIONUCLIDE AND DOSE: 9.8 mCi F18 FDG The route of agent administration: Intravenous FASTING BLOOD SUGAR: 98 mg/dl CONTRAST TYPE AND DOSE: No CT contrast given. TECHNIQUE: Blood glucose level was verified. Above dose of FDG was injected intravenously. 2-D seg mented attenuation correction images were obtained from the base of the skull to the midthighs. Nonc ontrast CT images were obtained for attenuation correction and fusion with emission images. CT image s were performed without oral or intravenous contrast and are not sensitive for parenchymal lesions. A series of overlapping emission PET images were obtained. Images reviewed and manipulated at [facility] [place]note 3][employer] work station by the radiologist. Images stored on PACS. LIMITATIONS: None. FINDINGS: HEAD AND NECK: No areas of abnormal metabolic activity in the soft tissues of the head and neck. CHEST: In the posterior right upper lobe, an 8 to 9 mm nodule is present with SUV 5.3 (was 3.5 on 10/14, was 2.3 on 04/19/2017). Stable radiotherapy changes at the right lung base, non metabolic. Subcentimeter lymph node along the inferior right hilum/ azygoesophageal recess region, SUV 6.3 (was 4.7 SUV on 10/14/2017). ABDOMEN AND PELVIS: No areas of abnormal metabolic activity in the abdomen or pelvis. Expected physi ologic activity is present in the genitourinary system and bowel. PROXIMAL LOWER EXTREMITIES: No areas of abnormal metabolic activity in the soft tissues of the lower extremities. BONES: There is increased uptake in the posterior rightward T8 or T9 vertebral body with SUV 8.2 (was SUV 4.5 on 10/14/2017). ADDITIONAL CT FINDINGS: Stable 3 cm nodule left lower thyroid protruding into the upper mediastinum, gallstones, colonic diverticuli, heavy atherosclerotic vascular calcification, lumbar spine surgery w ith hardware OTHER: Blood pool background activity 1.8 SUV. Liver background activity 2.4 SUV IMPRESSION: Increase in metabolic activity of posterior right upper lobe nodule, right lower hilar l ymph node, and lower thoracic vertebral body TECHNICAL DOCUMENTATION: JOB ID: [id number] [employer]- All Rights Reserved Reading location - IP/workstation name: [email or web address]
== END ==
LOC: RAD 14:48
PROVIDERS: ATTEND Internal Medicine
DX: C34.31 Malignant neoplasm of lower lobe, right bronchus or lung (principal); K80.80 Other cholelithiasis without obstruction; K57.30 Diverticulosis of large intestine without perforation or abscess without bleeding
CPT/HCPCS: 78815; A9552

== ENCOUNTER → 2018-01-28 | Outpatient (CLI) | payer MEDICARE, OTHER ==
--- NOTE | 2018-01-29 10:10 | RADIOLOGY REPORT (SQ) ---
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 T1 post ga dolinium sequences. CONTRAST TYPE AND DOSE: 10 mL Prohance. RENAL FUNCTION: GFR > 60. LIMITATIONS: None. FINDINGS: LOCALIZER: No worrisome findings. ALIGNMENT: Normal. VERTEBRAE: At the T8 level, there is a sclerotic bony metastatic lesion involving the majority of the T8 vertebral body, with minimal contrast enhancement. This correlates with the area of increased up take on PET-CT 01/20/2018. There no significant ventral epidural tumor at this level. The T9 and T10 vertebral bodies exhibit diffuse fatty marrow replacement. This is adjacent to the ri ght lower lobe mass previously treated with Gamma Knife. Post kyphoplasty with bone cement present at T12 and L1. At the L1 level artifact from bilateral tra nspedicular screws is present. BONE MARROW: As above HARDWARE: L1 transpedicular screws at the bottom edge of the field of view CORD: No abnormal thoracic cord or conus intrinsic signal. There is central canal stenosis at T5-6 f rom asymmetric facet arthropathy without cord impingement. SOFT TISSUES: No soft tissue masses. THORACIC DISCS T1-T12: There is mild bilateral facet arthropathy without significant central or alessio inal encroachment at T1-2, T2-3, T3-4, and T4-5. At T5-6, asymmetric left-sided facet arthropathy and left-sided disc bulge and bony spurring causes m oderate left foraminal narrowing. Borderline central canal narrowing. No right foraminal narrowing. At T6-7, mild bilateral facet hypertrophy is present without significant central or foraminal encroac hment. At T7-8, right and left paracentral disc bulging and facet arthropathy causes mild central canal narr owing without significant foraminal stenosis. At T8-9, mild right paracentral disc bulge and bulky bilateral facet hypertrophy is present with mild right foraminal narrowing. No central stenosis or left foraminal narrowing. At T9-10, mild central canal stenosis, mild to moderate bilateral foraminal narrowing results from di sc bulge and bony spurring and facet and ligament hypertrophy. At T10-11, mild bilateral foraminal narrowing from bilateral facet and ligament hypertrophy is presen t. No central stenosis. At T11-12, mild central canal stenosis results from broad diffuse posterior disc bulge and bulky bila teral facet and ligament hypertrophy. High-grade bilateral foraminal narrowing. At T12-L1, mild diffuse posterior disc bulge and moderate bilateral facet and ligament hypertrophy ca use mild central canal narrowing and mild to moderate bilateral foraminal narrowing. ENHANCEMENT: No abnormal thoracic cord or conus enhancement. No abnormal nerve root enhancement. Metastatic minimally enhancing lesion at the T8 level without significant central canal compromise. OTHER: No other significant finding. IMPRESSION: T8 lesion with minimal enhancement. No central stenosis or bulky epidural tumor TECHNICAL DOCUMENTATION: JOB ID: [id number] [employer]- All Rights Reserved Reading location - IP/workstation name: [email or web address]
== END ==
LOC: RAD 18:37
PROVIDERS: ATTEND Internal Medicine
DX: C34.31 Malignant neoplasm of lower lobe, right bronchus or lung (principal)
CPT/HCPCS: 72157; 82565

== ENCOUNTER 2018-02-07 08:57 | Day surgery (SDC) | payer MEDICARE, OTHER ==
[2018-02-07 09:48] LABS: HEMATOCRIT 37.7 % (36.0-47.0); HEMOGLOBIN 13.1 g/dL (12.0-15.5); MEAN CORPUSCULAR HEMOGLOBIN 31.8 pg (27.0-33.4); MEAN CORPUSCULAR HGB CONC 34.9 g/dL (32.0-36.0); MEAN CORPUSCULAR VOLUME 91 fl (80-97); PLATELET COUNT 128 10^3/uL (150-450); RED BLOOD COUNT 4.13 10^6/uL (3.72-5.28); RED CELL DISTRIBUTION WIDTH 12.9 % (11.5-14.0); WHITE BLOOD COUNT 4.7 10^3/uL (4.0-10.5)
[2018-02-07 09:51] LABS: INTERNATIONAL RATION (INR) 1.02; PROTHROMBIN TIME 13.9 SEC (11.4-15.4)
[2018-02-07 09:52] LABS: PARTIAL THROMBOPLASTIN TIME 22.9 SEC (23.5-35.8)
[2018-02-07 10:02] LABS: BLOOD UREA NITROGEN 17 mg/dL (7-20)
[2018-02-07] MEDS ORDERED: FENTANYL CITRATE INJ/PF 100 MCG/2 ML AMPUL ONE ×2 (11:26→12:30)
[2018-02-07] MEDS ORDERED: MIDAZOLAM 2 MG/2 ML INJ ONE ×2 (11:26→12:30)
[2018-02-07] MEDS ORDERED: LIDOCAINE 1% INJ-PF (10 MG/ML) 30 ML SDV ONE (11:27)
--- NOTE | 2018-02-07 14:14 | RADIOLOGY REPORT (SQ) ---
EXAM DESCRIPTION: CT BIOPSY BONE DEEP; CT NEEDLE PLACEMENT COMPLETED DATE/TIME: 02/07/2018 12:49 pm; 02/07/2018 12:48 pm REASON FOR STUDY: MALIGNANT NEOPLASM OF LOWER LOBE, RIGHT BRONCHUS OR LUNG C34.31 MALIGNANT NEOPLAS M OF LOWER LOBE, RIGHT BRONCHUS OR L Z79.01 CUSTODIAL (CURRENT) USE OF ANTICOAGULANTS COMPARISON: MRI thoracic spine 01/28/2018 PET-CT 10/14/2017, 01/20/2018 TECHNIQUE: CT guided biopsy of the metastatic lesion in the right T8 vertebral body performed with c onscious sedation. CT Fluoroscopy Time: [address] scanners at this facility use dose modulation, iterative reconstruction, and/or weight based d osing when appropriate to reduce radiation dose to as low as reasonably achievable (ALARA). [facility]: Dose Right [facility]: CareDose [facility]: Dose Right [facility]: Teradose 4D [facility]: [employer] RADIATION DOSE: mGy. FINDINGS: After obtaining informed consent and explaining the risks and benefits of conscious sedati on,the patient agreed to the procedure. Prior to the procedure, a time out was performed to verify th e patient's identity and planned procedure. IV sedation was administered and physician direction by the registered nurse using 0.5 milligrams of Versed and 125 micrograms of fentanyl, for conscious sedation. Physiologic monitoring was provided be fore, during, and after sedation. The total sedation time was 57 minutes. Documentation face to face time, the performing proceduralist, spent monitoring the patient: [address] scanning was performed to localize the percutaneous site for the biopsy approach. After sterile skin prep and local lidocaine for skin and deep tissue anesthesia, an 18 gauge needle w as used to access the right T8 vertebral body metastatic lesion with a transpedicular approach. Thro ugh the 18 gauge needle, a 20 gauge Chiba needle was used to obtain 4 aspirates of the lesion. The a spirates were given to Dr. Roblero and Carol from cytology. Malignant cells were identified in the as pirate. Final pathology is pending. There were no immediate complications. Pathology is pending at the time of dictation. IMPRESSION: CT GUIDED BIOPSY OF THE T8 VERTEBRAL BODY PERFORMED WITHOUT IMMEDIATE COMPLICATION. PAT HOLOGY PENDING. COMMENT: Quality ID 145: Final reports for procedures using fluoroscopy that document radiation exp osure indices, or exposure time and number of fluorographic images (if radiation exposure indices are not available) Patient medication list reviewed: Yes- Quality ID# [id number]:Eligible professional attests to documenting i n the medical record they obtained, updated, or reviewed the patient's current medications.. TECHNICAL DOCUMENTATION: JOB ID: [id number] Quality ID# [id number]: Final reports with documentation of one or more dose reduction techniques (e.g., Aut omated exposure control, adjustment of the mA and/or kV according to patient size, use of iterative r econstruction technique) 2010 [employer]- All Rights Reserved Reading location - IP/workstation name: [email or web address]
--- NOTE | 2018-02-07 14:14 | RADIOLOGY REPORT (SQ) ---
EXAM DESCRIPTION: CT BIOPSY BONE DEEP; CT NEEDLE PLACEMENT COMPLETED DATE/TIME: 02/07/2018 12:49 pm; 02/07/2018 12:48 pm REASON FOR STUDY: MALIGNANT NEOPLASM OF LOWER LOBE, RIGHT BRONCHUS OR LUNG C34.31 MALIGNANT NEOPLAS M OF LOWER LOBE, RIGHT BRONCHUS OR L Z79.01 SHELTER (CURRENT) USE OF ANTICOAGULANTS COMPARISON: MRI thoracic spine 01/28/2018 PET-CT 10/14/2017, 01/20/2018 TECHNIQUE: CT guided biopsy of the metastatic lesion in the right T8 vertebral body performed with c onscious sedation. CT Fluoroscopy Time: [address] scanners at this facility use dose modulation, iterative reconstruction, and/or weight based d osing when appropriate to reduce radiation dose to as low as reasonably achievable (ALARA). [facility]: Dose Right [facility]: CareDose [facility]: Dose Right [facility]: Teradose 4D [facility]: Smart [employer] RADIATION DOSE: mGy. FINDINGS: After obtaining informed consent and explaining the risks and benefits of conscious sedati on,the patient agreed to the procedure. Prior to the procedure, a time out was performed to verify th e patient's identity and planned procedure. IV sedation was administered and physician direction by the registered nurse using 0.5 milligrams of Versed and 125 micrograms of fentanyl, for conscious sedation. Physiologic monitoring was provided be fore, during, and after sedation. The total sedation time was 57 minutes. Documentation face to face time, the performing proceduralist, spent monitoring the patient: [address] scanning was performed to localize the percutaneous site for the biopsy approach. After sterile skin prep and local lidocaine for skin and deep tissue anesthesia, an 18 gauge needle w as used to access the right T8 vertebral body metastatic lesion with a transpedicular approach. Thro ugh the 18 gauge needle, a 20 gauge Chiba needle was used to obtain 4 aspirates of the lesion. The a spirates were given to Dr. Roblero and Carol from cytology. Malignant cells were identified in the as pirate. Final pathology is pending. There were no immediate complications. Pathology is pending at the time of dictation. IMPRESSION: CT GUIDED BIOPSY OF THE T8 VERTEBRAL BODY PERFORMED WITHOUT IMMEDIATE COMPLICATION. PAT HOLOGY PENDING. COMMENT: Quality ID 145: Final reports for procedures using fluoroscopy that document radiation exp osure indices, or exposure time and number of fluorographic images (if radiation exposure indices are not available) Patient medication list reviewed: Yes- Quality ID# [id number]:Eligible professional attests to documenting i n the medical record they obtained, updated, or reviewed the patient's current medications.. TECHNICAL DOCUMENTATION: JOB ID: [id number] Quality ID# 436: Final reports with documentation of one or more dose reduction techniques (e.g., Aut omated exposure control, adjustment of the mA and/or kV according to patient size, use of iterative r econstruction technique) 2010 [employer]- All Rights Reserved Reading location - IP/workstation name: [email or web address]-[email or web address]
[2018-02-07 15:00] VITALS: BP 111/69
== END 2018-02-07 15:00 | disposition home or self-care (01) ==
LOC: RAD 08:57
PROVIDERS: ATTEND Internal Medicine
DX: C34.31 Malignant neoplasm of lower lobe, right bronchus or lung (principal); Z79.01 Long term (current) use of anticoagulants; E11.9 Type 2 diabetes mellitus without complications
CPT/HCPCS: 36415; 82962; 84520; 82565; 85027; 85610; 85730; 88305 ×2; 77012; 20225; J2250; J3010; J3490

== ENCOUNTER → 2018-06-23 | Outpatient (CLI) | payer MEDICARE, OTHER ==
--- NOTE | 2018-06-24 13:39 | RADIOLOGY REPORT (SQ) ---
EXAM DESCRIPTION: PET CT SKULL/THIGH COMPLETED DATE/TIME: 06/23/2018 9:43 pm REASON FOR STUDY: LUNG CANCER C34.31 MALIGNANT NEOPLASM OF LOWER LOBE, RIGHT BRONCHUS OR L COMPARISON: PET-CT 01/20/2018, 10/14/2017 RADIONUCLIDE AND DOSE: 12.7 mCi F18 FDG The route of agent administration: Intravenous FASTING BLOOD SUGAR: 94 mg/dl CONTRAST TYPE AND DOSE: No CT contrast given. TECHNIQUE: Blood glucose level was verified. Above dose of FDG was injected intravenously. 2-D seg mented attenuation correction images were obtained from the base of the skull to the midthighs. Nonc ontrast CT images were obtained for attenuation correction and fusion with emission images. CT image s were performed without oral or intravenous contrast and are not sensitive for parenchymal lesions. A series of overlapping emission PET images were obtained. Images reviewed and manipulated at [facility] work station by the radiologist. Images stored on PACS. LIMITATIONS: None. FINDINGS: HEAD AND NECK: No areas of abnormal metabolic activity in the soft tissues of the head and neck. CHEST: In the posterior aspect right upper lobe, a 10 mm nodule is present on axial image 70 with SUV of 3.3 (was 8 to 9 mm in size with SUV 5.3 on 01/20/2018). Along the inferior right hilum/azygoesophageal recess, a 1.3 x 0.9 cm lymph node is present on axial image 88 with SUV of 7.6 (was less than 1 cm in greatest diameter with SUV 6.3 on PET-CT 01/20/2018). ABDOMEN AND PELVIS: No areas of abnormal metabolic activity in the abdomen or pelvis. Expected physi ologic activity is present in the genitourinary system and bowel. PROXIMAL LOWER EXTREMITIES: No areas of abnormal metabolic activity in the soft tissues of the lower extremities. BONES: Persistent abnormal increased uptake at T8 vertebral body with SUV of 5.5 (was SUV 8.2 on 01/20 PET-CT). ADDITIONAL CT FINDINGS: Left thyroid goiter, stones in the gallbladder, colonic diverticulosis withou t CT signs of acute diverticulitis. Diffuse arterial vascular calcifications. Old lumbar spine surg lawrence with hardware OTHER: Liver background activity 2.5 SUV. Blood pool background activity 1.6 SUV. IMPRESSION: Persistent metabolic activity in a posterior right upper lobe nodule, right lobe lower h ilar lymph node, and in the T8 vertebral body TECHNICAL DOCUMENTATION: JOB ID: [id number] [email or web address]- All Rights Reserved Reading location - IP/workstation name: [email or web address]
== END ==
LOC: RAD 15:10
PROVIDERS: ATTEND Internal Medicine
DX: C34.31 Malignant neoplasm of lower lobe, right bronchus or lung (principal)
CPT/HCPCS: 78815; A9552

== ENCOUNTER → 2018-09-22 | Outpatient (CLI) | payer MEDICARE, OTHER ==
--- NOTE | 2018-09-23 09:31 | RADIOLOGY REPORT (SQ) ---
EXAM DESCRIPTION: PET CT SKULL/THIGH COMPLETED DATE/TIME: 09/22/2018 9:04 pm REASON FOR STUDY: LUNG CANCER C34.31 MALIGNANT NEOPLASM OF LOWER LOBE, RIGHT BRONCHUS OR L COMPARISON: 06/23/2018 RADIONUCLIDE AND DOSE: 9.2 mCi F18 FDG The route of agent administration: Intravenous FASTING BLOOD SUGAR: 105 mg/dl CONTRAST TYPE AND DOSE: No CT contrast given. TECHNIQUE: Blood glucose level was verified. Above dose of FDG was injected intravenously. 2-D seg mented attenuation correction images were obtained from the base of the skull to the midthighs. Nonc ontrast CT images were obtained for attenuation correction and fusion with emission images. CT image s were performed without oral or intravenous contrast and are not sensitive for parenchymal lesions. A series of overlapping emission PET images were obtained. Images reviewed and manipulated at [facility] work station by the radiologist. Images stored on PACS. LIMITATIONS: None. FINDINGS: HEAD AND NECK: No areas of abnormal metabolic activity in the soft tissues of the head and neck. CHEST: 10 mm nodule right upper lobe image 69 unchanged morphologically, SUV 2.2, previously 3.3. 12 x 9 mm level 7 node right of midline 12 x 8 mm unchanged morphologically, 6.2 SUV, previously 7.6 MARTINEZ V. ABDOMEN AND PELVIS: No areas of abnormal metabolic activity in the abdomen or pelvis. Expected physi ologic activity is present in the genitourinary system and bowel. PROXIMAL LOWER EXTREMITIES: No areas of abnormal metabolic activity in the soft tissues of the lower extremities. BONES: Uptake T8 vertebral body 5.9 SUV, previously 5.[address] FINDINGS: No additional significant findings on the noncontrast CT images. OTHER: Blood pool 1.7 SUV. Background liver 2.3 SUV. IMPRESSION: Overall stable exam with slight decrease in SUVs of right lung nodule and lymph node janette t are unchanged morphologically. TECHNICAL DOCUMENTATION: JOB ID: [id number] [employer]- All Rights Reserved Reading location - IP/workstation name: [email or web address]
== END ==
LOC: RAD 14:53
PROVIDERS: ATTEND Internal Medicine
DX: C34.31 Malignant neoplasm of lower lobe, right bronchus or lung (principal)
CPT/HCPCS: 78815; A9552

== ENCOUNTER → 2018-11-05 | Outpatient (CLI) | payer MEDICARE, OTHER ==
--- NOTE | 2018-11-06 09:21 | RADIOLOGY REPORT (SQ) ---
EXAM DESCRIPTION: MRI LUMBAR SPINE COMBO COMPLETED DATE/TIME: 11/05/2018 5:08 pm REASON FOR STUDY: M54.00 PANNICULTITIS AFFECTING REGIONS OF NECK AND BACK,SITE UNSPECIFIED C3 M54.00 PANNICULITIS AFFECTING REGIONS OF NECK AND BACK, SITE COMPARISON: PET-CT 09/22/2018, 06/23/2018 TECHNIQUE: Sagittal and Axial imaging includes T1, T1 post gadolinium, T2, STIR and gradient echo se quences. Coronal T2/HASTE imaging. CONTRAST TYPE AND DOSE: 10 mL Dotarem. RENAL FUNCTION: Not indicated. ACR Type II contrast agent associated with few, if any, unconfounded cases of NSF LIMITATIONS: There is metallic artifact from transpedicular screws and dorsal fixation plates from L 1 through L5. FINDINGS: VISUALIZED UPPER ABDOMEN: Stones in the gallbladder SEGMENTATION: No transitional anatomy. The lowest well-developed disc space is labeled L5-S1. ALIGNMENT: Mild convex leftward lumbar curvature, minimal grade 1 anterolisthesis of L4 over L5 VERTEBRAE: Old kyphoplasties with bone cement at T12 and L1. BONE MARROW: Fatty reactive vertebral body endplate changes from T12 through S1. DISC SIGNAL: Diffuse disc space loss of height POSTERIOR ELEMENTS: Old bilateral laminectomies from L2 through L4 HARDWARE: As above CORD AND CONUS: Normal in size and signal intensity. Conus at the T12-L1 level. SOFT TISSUES: No aortic aneurysm seen. No bulky retroperitoneal adenopathy or mass. No paraspinal mas s or fluid. T10-11: At the upper edge of the field of view. Borderline central canal stenosis, mild bilateral f oraminal narrowing from facet hypertrophy. T11-12: Central posterior disc protrusion/herniation along with bilateral facet and ligament hypertr ophy causes mild to moderate central canal stenosis, mild right and moderate to high-grade left alessio inal narrowing. T12-L1: Broad diffuse posterior disc bulging is present with bulky bilateral facet and ligament hype rtrophy. Borderline central canal narrowing. Moderate right, mild left foraminal narrowing L1-L2: Broad diffuse posterior disc bulging is present with bulky bilateral facet and ligament hypert rophy. Ubcf-od-lgmiyjes central canal stenosis with flattening of the thecal sac into a triangular s hape and partial effacement of the CSF around the lumbar nerve roots. Moderate bilateral foraminal n arrowing. L2-L3: Broad diffuse posterior disc bulging is present with old bilateral laminectomy. No central st enosis. Mild to moderate bilateral foraminal narrowing. L3-L4: Broad diffuse posterior disc bulging is present with old bilateral laminectomy. No central st enosis. Mild bilateral foraminal narrowing. L4-L5: Diffuse posterior disc bulge and bony spurring right greater than left. Bilateral laminectomy . No central stenosis. At least moderate right foraminal narrowing. Mild left foraminal stenosis. L5-S1: Central posterior disc protrusion is present with broad diffuse posterior disc bulging and bul ky bilateral facet hypertrophy. Mild central canal stenosis. Mild bilateral foraminal narrowing. ENHANCEMENT: No abnormal cord or nerve root enhancement OTHER: No other significant findings. IMPRESSION: Significant central canal stenosis at T11-12, L2-3, with mild central canal stenosis at L5-S1. Multilevel significant foraminal narrowing. Old kyphoplasties at T12 and L1 without acute saray mbar compression deformity TECHNICAL DOCUMENTATION: JOB ID: [id number] [employer]- All Rights Reserved Reading location - IP/workstation name: [email or web address]
--- NOTE | 2018-11-06 09:31 | RADIOLOGY REPORT (SQ) ---
EXAM DESCRIPTION: MRI THORACIC SPINE COMBO COMPLETED DATE/TIME: 11/05/2018 5:08 pm REASON FOR STUDY: M54.00 PANNICULTITIS AFFECTING REGIONS OF NECK AND BACK,SITE UNSPECIFIED C3 M54.00 PANNICULITIS AFFECTING REGIONS OF NECK AND BACK, SITE COMPARISON: MRI thoracic spine 01/28/2018 MRI lumbar spine 11/05/2018 PET-CT 06/23/2018, 09/22/2018 TECHNIQUE: Sagittal and Axial imaging includes T1, T2, STIR and gradient echo sequences. T1 post ga dolinium sequences. CONTRAST TYPE AND DOSE: 10 mL Dotarem. RENAL FUNCTION: Not indicated. ACR Type II contrast agent associated with few, if any, unconfounded cases of NSF LIMITATIONS: None. FINDINGS: ALIGNMENT: Normal. VERTEBRAE and BONE MARROW: At the T8 level, there is abnormal vertebral body marrow signal and enhanc ement which correlates with PET-CT 09/22/2018, worrisome for bony metastatic involvement. No compress ion deformity. No bulky epidural tumor. There is bilateral foraminal narrowing and T8-9 right great er than left from facet arthropathy. At the T9 level, 50% compression deformity is present with minimal edema paralleling the upper endpla te on STIR images, likely a subacute compression deformity. No bulky epidural tumor. Moderate bilat eral T9-10 foraminal narrowing from facet arthropathy. Mild central stenosis from facet arthropathy and posterior T9-10 disc bulging Old bone cement from previously treated T12 and L1 vertebral body compression deformities. HARDWARE: At the bottom edge of the field of view, bilateral L1 transpedicular screws are present CORD: Normal in size and signal intensity. SOFT TISSUES: No soft tissue masses. OTHER: No other significant finding. IMPRESSION: T8 vertebral body replaced with tumor. No compression deformity or gross bulky epidural tumor at the T8 level. Subacute T9 50% compression deformity with marrow edema paralleling the upper endplate TECHNICAL DOCUMENTATION: JOB ID: [id number]- All Rights Reserved Reading location - IP/workstation name: [email or web address]
== END ==
LOC: RAD 16:09
PROVIDERS: ATTEND Internal Medicine
DX: M54.00 Panniculitis affecting regions of neck and back, site unspecified (principal); C34.31 Malignant neoplasm of lower lobe, right bronchus or lung; M48.04 Spinal stenosis, thoracic region; M48.07 Spinal stenosis, lumbosacral region
CPT/HCPCS: 82565; 72157; 72158; A9576

== ENCOUNTER → 2019-01-14 | Outpatient (CLI) | payer MEDICARE, OTHER ==
[2019-01-14 08:22] LABS: ABSOLUTE EOSINOPHILS # (AUTO) 0.1 10^3/uL (0.0-0.6); ABSOLUTE LYMPHOCYTES (AUTO) 1.1 10^3/uL (0.5-4.7); ABSOLUTE MONOCYTES (AUTO) 0.6 10^3/uL (0.1-1.4); BASOPHILS % (AUTO) 0.7 % (0-2); EOSINOPHILS % (AUTO) 2.8 % (0-6); HEMATOCRIT 37.9 % (36.0-47.0); MEAN CORPUSCULAR HEMOGLOBIN 31.6 pg (27.0-33.4); MEAN CORPUSCULAR HGB CONC 34.3 g/dL (32.0-36.0); MEAN CORPUSCULAR VOLUME 92 fl (80-97); MONOCYTES % (AUTO) 11.7 % (3-13); PLATELET COUNT 150 10^3/uL (150-450); RED BLOOD COUNT 4.11 10^6/uL (3.72-5.28); RED CELL DISTRIBUTION WIDTH 13.1 % (11.5-14.0); SEGMENTED NEUTROPHILS % (AUTO) 62.8 % (42-78); TOTAL CELLS COUNTED % (AUTO) 100 %; WHITE BLOOD COUNT 4.8 10^3/uL (4.0-10.5)
[2019-01-14 08:39] LABS: ALANINE AMINOTRANSFERASE 24 U/L (9-52); ALBUMIN 4.2 g/dL (3.5-5.0); ALKALINE PHOSPHATASE 44 U/L (38-126); ANION GAP 9 (5-19); ASPARTATE AMINO TRANSFERASE 26 U/L (14-36); BILIRUBIN,DIRECT 0.2 mg/dL (0.0-0.4); BILIRUBIN,TOTAL 0.7 mg/dL (0.2-1.3); BLOOD UREA NITROGEN 14 mg/dL (7-20); CALCIUM 10.4 mg/dL (8.4-10.2); CARBON DIOXIDE 33 mmol/L (22-30); CHLORIDE 101 mmol/L (98-107); CHOLESTEROL 205.58 mg/dL (0-200); GLUCOSE 112 mg/dL (75-110); POTASSIUM 3.7 mmol/L (3.6-5.0); SODIUM 142.9 mmol/L (137-145); TOTAL PROTEIN 6.8 g/dL (6.3-8.2); TRIGLYCERIDES 119 mg/dL (<150)
[2019-01-14 08:50] LABS: DIRECT LDL 122 mg/dL (<100)
== END ==
LOC: OD 07:48
PROVIDERS: ATTEND Internal Medicine
DX: E11.9 Type 2 diabetes mellitus without complications (principal); I10 Essential (primary) hypertension; Z79.899 Other long term (current) drug therapy; E55.9 Vitamin D deficiency, unspecified; I48.0 Paroxysmal atrial fibrillation; M54.5 Low back pain; M19.90 Unspecified osteoarthritis, unspecified site
CPT/HCPCS: 36415; 80053; 80061; 82306; 85025

== ENCOUNTER 2019-07-01 10:39 | Emergency (ER) | payer MEDICARE, OTHER ==
--- NOTE | 2019-07-01 12:08 | ER Document Report ---
ED General - General Chief Complaint: Fall Stated Complaint: FALL/BODY PAIN Time Seen by Provider: 07/01/19 11:16 Primary Care Provider: RIKY CRUZ MD [Primary Care Provider] - Follow up as needed TAINA TOSCANO MD [ACTIVE STAFF] - Follow up as needed TRAVEL OUTSIDE OF THE [place] IN LAST 30 DAYS: No - HPI Notes: Patient is an 83-year-old female with a history of hypertension, diabetes, arthritis, active lung cancer (not currently on any chemo or radiation) with some metastasis to bone who presents complaining of mechanical fall prior to arrival when she was at the [facility]. Patient states that she tripped over a rug. This was a witnessed event. Patient states that she fell forward and hit her face and head. Patient states that she does have bruising and pain to her nose, forehead, mildly to the neck. She has had previous surgery to her lower back and neck. Patient states that she has no other pain or discomfort anywhere else on her body. She is otherwise acting and behaving normally per family. She does take aspirin daily, but no other blood thinners. No loss of consciousness. Denies any headache, fever, changes in vision/speech/mentation/hearing, URI, sore throat, chest pain, palpitations, syncope, cough, shortness of breath, wheeze, dyspnea, abdominal pain, nausea/vomiting/diarrhea, urinary retention, dysuria, hematuria, loss of control of bowel or bladder, numbness/tingling, saddle anesthesia, muscle paralysis/weakness, or rash. - Related Data Allergies/Adverse Reactions: cerivastatin [Cerivastatin] Allergy (Verified 07/01/19 10:55) enalapril maleate [From Vasotec] Allergy (Verified 07/01/19 10:55) enalaprilat dihydrate [From Vasotec] Allergy (Verified 07/01/19 10:55) fexofenadine HCl [From Amelia] Allergy (Verified 07/01/19 10:55) hydromorphone HCl [From Dilaudid] Allergy (Verified 07/01/19 10:55) lovastatin [From Advicor] Allergy (Verified 07/01/19 10:55) niacin [From Advicor] Allergy (Verified 07/01/19 10:55) oxycodone [Oxycodone] Allergy (Verified 07/01/19 10:55) oxycodone HCl [From Tylox] Allergy (Verified 07/01/19 10:55) simvastatin [Simvastatin] Allergy (Verified 07/01/19 10:55) astimizde Allergy (Uncoded 07/01/19 10:55) Past Medical History - Social History Smoking Status: Former Smoker Family History: Reviewed & Not Pertinent Patient has suicidal ideation: No Patient has homicidal ideation: No - Past Medical History Cardiac Medical History: Reports: Hx Congestive Heart Failure, Hx Heart Attack - OR (1989), Hx Hypertension Denies: Hx Coronary Artery Disease Pulmonary Medical History: Denies: Hx Asthma, Hx Bronchitis, Hx COPD, Hx Pneumonia Neurological Medical History: Denies: Hx Cerebrovascular Accident, Hx Seizures Endocrine Medical History: Reports: Hx Diabetes Mellitus Type 2 Renal/ Medical History: Denies: Hx Peritoneal Dialysis Musculoskeletal Medical History: Reports Hx Arthritis - BACK Past Surgical History: Reports: Hx Hysterectomy, Hx Orthopedic Surgery - back sx, neck - Immunizations Hx Diphtheria, Pertussis, Tetanus Vaccination: Yes - UPTODATE Hx Pneumococcal Vaccination: 08/13/11 Review of Systems - Review of Systems -: Yes All other systems reviewed and negative Physical Exam - Vital signs Vitals: Temp Pulse Resp BP Pulse Ox 98.1 F 79 18 103/68 98 07/01/19 11:04 07/01/19 11:04 07/01/19 11:04 07/01/19 11:04 07/01/19 11:04 - Notes Notes: PHYSICAL EXAMINATION: GENERAL: Well-appearing, well-nourished and in no acute distress. A&Ox4. Answers questions appropriately. HEAD: Atraumatic, normocephalic. Non-tender. No benavidez sign Face: + ecchymosis and mild hematoma left forehead with small abrasion left eyebrow. + ecchymosis across and b/l to nose with swelling to the nasal bone, + tenderness. EYES: Pupils equal round and reactive to light, extraocular movements intact, sclera anicteric, conjunctiva are normal. No raccoon eyes/entrapment ENT: EAC clear b/l. TM's intact b/l without erythema, fluid, or perforation. Nares patent and without discharge. oropharynx clear without exudates. No tonsilar hypertrophy or erythema. Moist mucous membranes. No sinus tenderness. No hemotympanum/CSF discharge. NECK: Normal range of motion, supple without lymphadenopathy. No rigidity. Mild midline tenderness. no step-off. Chest: No flail chest. equal rise/fall. Non-tender LUNGS: Breath sounds clear to auscultation bilaterally and equal. No wheezes rales or rhonchi. HEART: Regular rate and rhythm without murmurs, rubs, gallops. ABDOMEN: Soft, nontender, nondistended abdomen. No guarding, no rebound. Normal bowel sounds present. No CVA tenderness bilaterally. no ecchymosis Musculoskeletal: Ext's b/l: FROM to passive/active. Strength 5+/5. No deficits noted. No bony tenderness of extremities. Pelvis stable. I evaluated every joint to the extremities and all were unremarkable including hips. Pt was ambulated in the room >4 steps w/o any discomfort. Back: FROM to passive/active. Strength 5+/5. No vertebral point tenderness, stepoffs, or deformities. No other bony tenderness or ecchymosis. Extremities: No cyanosis, clubbing, or edema b/l. Peripheral pulses 2+. Capillary refill less than 2 seconds. NEUROLOGICAL: NIH 0. GCS 15. Cranial nerves grossly intact. Normal speech, normal gait with aide of SPC. Normal sensory, motor exams. Reflexes 2+ b/l. PSYCH: Normal mood, normal affect. SKIN: see above Course - Re-evaluation Re-evalutation: 07/01/19 Patient is an afebrile, well-hydrated, 83-year-old female who presents with a fall and head injury. Vitals are acceptable documented tachycardia, tachypnea, hypoxia. PE is otherwise unremarkable for any focal neurological deficits, neurovascular compromise, obvious tendon/leg rupture, obvious fracture/patient. Patient had a mechanical fall that was witnessed. CT scan of the head, cervical spine, and facial bones were unremarkable. Patient did not have any other tenderness to her extremities or pelvis. Patient has been able to ambulate and weight-bear more than 4 steps in the room without any difficulty. Patient states that she is currently feeling well and is ready to go home. Wound on the face was cleansed and no repair is warranted at this time. Wound dressing placed. Low suspicion for any acute glaucoma, temporal arteritis, meningitis, intracranial hemorrhage, ischemic stroke, or fracture at this time. Patient is aware that this condition can change from initial presentation and that she needs to monitor symptoms closely for any acute changes. Patient to recheck with your PCM this week. Return to the ED with any other worsening/concerning symptoms. Pt and family in agreement. - Vital Signs Vital signs: Temp Pulse Resp BP Pulse Ox 98.1 F 79 18 103/68 98 07/01/19 11:04 07/01/19 11:04 07/01/19 11:04 07/01/19 11:04 07/01/19 11:04 Discharge - Discharge Clinical Impression: Head injury Qualifiers: Encounter type: initial encounter Qualified Code(s): S09.90XA - Unspecified injury of head, initial encounter Contusion of face Qualifiers: Encounter type: initial encounter Qualified Code(s): S00.83XA - Contusion of other part of head, initial encounter Condition: Stable Disposition: HOME, SELF-CARE Additional Instructions: Rest, Ice/cool compress Tylenol/ibuprofen as needed Keep the skin clean, use triple antibiotic ointment as well Light stretches daily Strength exercises as able Moist heat and massage may help F/u with your PCP in 2-3 days for a recheck Consider consult(s) with Neurology for ongoing/worsening symptoms Return to the ED with any worsening symptoms and/or development of fever, headache, changes in behavior/mentation/vision/speech, chest pain, palpitations, syncope, shortness of breath, trouble breathing, abdominal pain, n/v/d, blood in stool/urine, loss of control of bowel/bladder, urinary retention, muscle weakness/paralysis, saddle anesthesia, numbness/tingling, or other worsening symptoms that are concerning to you. Prescriptions: Walker [Ultra-Light Rollator] 1 each MC DAILY #1 unit Referrals: ATINA TOSCANO MD [ACTIVE STAFF] - Follow up as needed RIKY CRUZ MD [Primary Care Provider] - Follow up as needed
--- NOTE | 2019-07-01 12:09 | RADIOLOGY REPORT (SQ) ---
EXAM DESCRIPTION: CT CERVICAL SPINE WITHOUT COMPLETED DATE/TIME: 07/01/2019 11:58 am REASON FOR STUDY: fall, pain COMPARISON: 09/08/2017 TECHNIQUE: Axial images acquired through the cervical spine without intravenous contrast. Images re viewed with lung, soft tissue and bone windows. Reconstructed coronal and sagittal MPR images review ed. Images stored on PACS. All CT scanners at this facility use dose modulation, iterative reconstruction, and/or weight based d osing when appropriate to reduce radiation dose to as low as reasonably achievable (ALARA). [facility]: Dose Right [facility]: CareDose [facility]: Dose Right [facility]: Teradose 4D [facility]: Smart [employer] RADIATION DOSE: CT Rad equipment meets quality standard of care and radiation dose reduction techniq ues were employed. CTDIvol: 9.2 mGy. DLP: 165 mGy-cm. mGy. LIMITATIONS: None. FINDINGS: ALIGNMENT: Straightening of the normal cervical lordosis. Redemonstrated retrolisthesis o f C3 on C4. MINERALIZATION: Normal. VERTEBRAL BODIES: No fractures or dislocation. DISCS: Status post anterior cervical discectomy and fusion of C4-C5. There is moderate to severe mul tilevel disc degenerative disease elsewhere. FACETS, LATERAL MASSES, POSTERIOR ELEMENTS: No fractures. No dislocation. No acute findings. HARDWARE: None in the spine. VISUALIZED RIBS: No fractures. LUNG APICES AND SOFT TISSUES: No significant or acute findings. OTHER: No other significant finding. IMPRESSION: No fracture or static subluxation of the cervical spine. Postoperative findings of ante rior cervical discectomy and fusion of C4-C5 and underlying disc degenerative disease of the cervical spine. TECHNICAL DOCUMENTATION: JOB ID: [id number] Quality ID # [id number]: Final reports with documentation of one or more dose reduction techniques (e.g., Au tomated exposure control, adjustment of the mA and/or kV according to patient size, use of iterative reconstruction technique) 2010 [employer]- All Rights Reserved Reading location - IP/workstation name: [email or web address]
--- NOTE | 2019-07-01 12:12 | RADIOLOGY REPORT (SQ) ---
EXAM DESCRIPTION: CT HEAD WITHOUT; CT FACIAL AREA WITHOUT COMPLETED DATE/TIME: 07/01/2019 12:02 pm; 07/01/2019 11:58 am REASON FOR STUDY: fall, pain COMPARISON: 01/18/2018 TECHNIQUE: Axial images acquired through the brain and facial bones without intravenous contrast. I mages reviewed with bone, brain and subdural windows. Additional sagittal and coronal reconstruction s were generated. Images stored on PACS. All CT scanners at this facility use dose modulation, iterative reconstruction, and/or weight based d osing when appropriate to reduce radiation dose to as low as reasonably achievable (ALARA). [facility]: Dose Right [facility]: CareDose [facility]: Dose Right [facility]: Teradose 4D [facility]: [employer] RADIATION DOSE: CT Rad equipment meets quality standard of care and radiation dose reduction techniq ues were employed. CTDIvol: 53.2 mGy. DLP: 1044 mGy-cm.; CT Rad equipment meets quality standard of c are and radiation dose reduction techniques were employed. CTDIvol: 30.4 mGy. DLP: 555 mGy-cm. mGy. LIMITATIONS: None. FINDINGS: VENTRICLES: Normal size and contour. CEREBRUM: No masses. No hemorrhage. No midline shift. No evidence for acute infarction. Few scatte red areas of low density in the white matter most likely chronic small vessel ischemic changes. CEREBELLUM: No masses. No hemorrhage. No alteration of density. No evidence for acute infarction. EXTRAAXIAL SPACES: No fluid collections. No masses. ORBITS AND GLOBE: No intra- or extraconal masses. Normal contour of globe without masses. FACIAL BONES: No displaced fracture or dislocation. CALVARIUM: No fracture. Hyperostosis. PARANASAL SINUSES: No fluid or mucosal thickening. SOFT TISSUES: Soft tissue hematomas of the forehead. OTHER: No other significant finding. IMPRESSION: 1. No acute intracranial pathology. 2. No displaced fracture or dislocation of the facial bones. EVIDENCE OF ACUTE STROKE: NO. COMMENT: Quality ID # [id number]: Final reports with documentation of one or more dose reduction techniques (e.g., Automated exposure control, adjustment of the mA and/or kV according to patient size, use of iterative reconstruction technique) TECHNICAL DOCUMENTATION: JOB ID: [id number] [employer]- All Rights Reserved Reading location - IP/workstation name: [email or web address]
[2019-07-01 13:49] VITALS: BP 110/62
== END 2019-07-01 13:50 | disposition home or self-care (01) ==
LOC: ER 10:39
DX: S00.83XA Contusion of other part of head, initial encounter (principal); S00.33XA Contusion of nose, initial encounter; S00.212A Abrasion of left eyelid and periocular area, initial encounter; W01.0XXA Fall on same level from slipping, tripping and stumbling without subsequent striking against object, initial encounter; Y93.89 Activity, other specified; Y92.22 Religious institution as the place of occurrence of the external cause; I10 Essential (primary) hypertension; E11.9 Type 2 diabetes mellitus without complications; Z98.1 Arthrodesis status; Z79.82 Long term (current) use of aspirin; Z87.891 Personal history of nicotine dependence; Z88.8 Allergy status to other drugs, medicaments and biological substances; Z88.5 Allergy status to narcotic agent
CPT/HCPCS: 70450; 70486; 72125; 99284

== ENCOUNTER 2019-08-09 13:44 | Observation (INO) | payer MEDICARE, OTHER ==
--- NOTE | 2019-08-09 14:31 | ER Document Report ---
ED General - General Chief Complaint: Breathing Difficulty Stated Complaint: DIFFICULTY BREATHING Time Seen by Provider: 08/09/19 14:22 TRAVEL OUTSIDE OF THE [place] IN LAST 30 DAYS: No - HPI Notes: Patient presents with 1 week of progressive shortness of breath. No recent fevers cough congestion or illnesses. She does have a history of lung cancer diagnosed proximally 4 years ago but is not currently on any chemotherapy. She has intermittent chest pain with her shortness of breath. It is not worse with lying flat. She has not any recent weight gain. No history of heart attack or stroke. She is not on blood thinners other than a daily baby aspirin - Related Data Allergies/Adverse Reactions: cerivastatin [Cerivastatin] Allergy (Verified 08/09/19 16:15) enalapril maleate [From Vasotec] Allergy (Verified 08/09/19 16:15) enalaprilat dihydrate [From Vasotec] Allergy (Verified 08/09/19 16:15) fexofenadine HCl [From Amelia] Allergy (Verified 08/09/19 16:15) hydromorphone HCl [From Dilaudid] Allergy (Verified 08/09/19 16:15) lovastatin [From Advicor] Allergy (Verified 08/09/19 16:15) niacin [From Advicor] Allergy (Verified 08/09/19 16:15) oxycodone [Oxycodone] Allergy (Verified 08/09/19 16:15) oxycodone HCl [From Tylox] Allergy (Verified 08/09/19 16:15) simvastatin [Simvastatin] Allergy (Verified 08/09/19 16:15) astimizde Allergy (Uncoded 07/01/19 10:55) Past Medical History - Social History Smoking Status: Unknown if Ever Smoked Family History: Reviewed & Not Pertinent - Past Medical History Cardiac Medical History: Reports: Hx Congestive Heart Failure, Hx Heart Attack - [place] (1989), Hx Hypertension Denies: Hx Coronary Artery Disease Pulmonary Medical History: Denies: Hx Asthma, Hx Bronchitis, Hx COPD, Hx Pneumonia Neurological Medical History: Denies: Hx Cerebrovascular Accident, Hx Seizures Endocrine Medical History: Reports: Hx Diabetes Mellitus Type 2 Renal/ Medical History: Denies: Hx Peritoneal Dialysis Musculoskeletal Medical History: Reports Hx Arthritis - BACK Past Surgical History: Reports: Hx Hysterectomy, Hx Orthopedic Surgery - back sx, neck - Immunizations Hx Diphtheria, Pertussis, Tetanus Vaccination: Yes - UPTODATE Hx Pneumococcal Vaccination: 08/13/11 Review of Systems - Review of Systems Constitutional: No symptoms reported EENT: No symptoms reported Cardiovascular: See HPI Respiratory: See HPI Gastrointestinal: No symptoms reported Genitourinary: No symptoms reported Female Genitourinary: No symptoms reported Musculoskeletal: No symptoms reported Skin: No symptoms reported Hematologic/Lymphatic: No symptoms reported Neurological/Psychological: No symptoms reported Physical Exam - Vital signs Vitals: Temp Pulse Resp BP Pulse Ox 98 F 88 28 H 113/68 95 08/09/19 14:11 08/09/19 14:11 08/09/19 14:11 08/09/19 14:11 08/09/19 14:11 - General General appearance: Appears well, Alert - HEENT Head: Normocephalic, Atraumatic Eyes: Normal Conjunctiva: Normal Nasal: Normal Mouth/Lips: Normal Mucous membranes: Normal - Respiratory Respiratory status: No respiratory distress Chest status: Nontender Breath sounds: Other - Mild crackles and reduced air movement right lower lung base compared to left - Cardiovascular Rhythm: Regular Heart sounds: S2 appreciated - Abdominal Inspection: Normal Distension: No distension Bowel sounds: Normal Tenderness: Nontender - Extremities General upper extremity: Normal inspection General lower extremity: Normal inspection. No: Edema Course - Re-evaluation Re-evalutation: 08/09/19 18:02 Admit for CHF and chest pain work-up. - Vital Signs Vital signs: Temp Pulse Resp BP Pulse Ox 98.2 F 88 16 129/87 H 97 08/09/19 16:50 08/09/19 14:11 08/09/19 21:18 08/09/19 18:02 08/09/19 18:57 - Laboratory Result Diagrams: 08/09/19 14:52 08/09/19 14:52 Laboratory results interpreted by me: 08/09/19 08/09/19 08/09/19 14:52 14:52 14:52 Plt Count 127 L D-Dimer Carbon Dioxide 32 H NT-Pro-B Natriuret Pep 5390 H Urine Protein 08/09/19 08/09/19 14:52 16:20 Plt Count D-Dimer 1.35 H Carbon Dioxide NT-Pro-B Natriuret Pep Urine Protein 100 H Discharge - Discharge Clinical Impression: Shortness of breath at rest, Elevated brain natriuretic peptide (BNP) level Chest pain Qualifiers: Chest pain type: chest pain on breathing Qualified Code(s): R07.1 - Chest pain on breathing Condition: Good Disposition: ADMITTED OBSERVATION Admitting Provider: Eric (Hospitalist) Unit Admitted: Telemetry
[2019-08-09 15:03] LABS: ABSOLUTE BASOPHILS # (AUTO) 0.1 10^3/uL (0.0-0.2); ABSOLUTE EOSINOPHILS # (AUTO) 0.1 10^3/uL (0.0-0.6); ABSOLUTE LYMPHOCYTES (AUTO) 1.4 10^3/uL (0.5-4.7); ABSOLUTE MONOCYTES (AUTO) 0.7 10^3/uL (0.1-1.4); ABSOLUTE NEUT (AUTO) 3.3 10^3/uL (1.7-8.2); BASOPHILS % (AUTO) 1.1 % (0-2); EOSINOPHILS % (AUTO) 1.6 % (0-6); HEMATOCRIT 36.4 % (36.0-47.0); HEMOGLOBIN 12.7 g/dL (12.0-15.5); LYMPHOCYTES % (AUTO) 24.6 % (13-45); MEAN CORPUSCULAR HEMOGLOBIN 32.5 pg (27.0-33.4); MEAN CORPUSCULAR HGB CONC 34.9 g/dL (32.0-36.0); MEAN CORPUSCULAR VOLUME 93 fl (80-97); MONOCYTES % (AUTO) 11.8 % (3-13); PLATELET COUNT 127 10^3/uL (150-450); RED BLOOD COUNT 3.91 10^6/uL (3.72-5.28); RED CELL DISTRIBUTION WIDTH 13.2 % (11.5-14.0); SEGMENTED NEUTROPHILS % (AUTO) 60.9 % (42-78); TOTAL CELLS COUNTED % (AUTO) 100 %; WHITE BLOOD COUNT 5.5 10^3/uL (4.0-10.5)
[2019-08-09 15:21] LABS: ALBUMIN 3.6 g/dL (3.5-5.0); ALKALINE PHOSPHATASE 45 U/L (38-126); ANION GAP 6 (5-19); ASPARTATE AMINO TRANSFERASE 25 U/L (14-36); BILIRUBIN,DIRECT 0.2 mg/dL (0.0-0.4); BILIRUBIN,TOTAL 0.7 mg/dL (0.2-1.3); BLOOD UREA NITROGEN 16 mg/dL (7-20); CARBON DIOXIDE 32 mmol/L (22-30); CHLORIDE 102 mmol/L (98-107); GLUCOSE 108 mg/dL (75-110); POTASSIUM 3.7 mmol/L (3.6-5.0); TOTAL PROTEIN 6.4 g/dL (6.3-8.2)
[2019-08-09] MEDS ORDERED: NORMAL SALINE 500 ML IV ONE (15:27)
--- NOTE | 2019-08-09 15:40 | RADIOLOGY REPORT (SQ) ---
EXAM DESCRIPTION: CHEST SINGLE VIEW COMPLETED DATE/TIME: 08/09/2019 3:24 pm REASON FOR STUDY: bed 2 db COMPARISON: 09/08/2017. NUMBER OF VIEWS: One view. TECHNIQUE: Single frontal radiographic view of the chest acquired. LIMITATIONS: None. FINDINGS: LUNGS AND PLEURA: Hyperinflated. No acute infiltrates. No pneumothorax. No large pleura l effusion. MEDIASTINUM AND HILAR STRUCTURES: Stable contours. Densely calcified and coiled ectatic aorta. HEART AND VASCULAR STRUCTURES: Marked cardiomegaly, as before. Mild vascular congestion. BONES: Osteopenic. HARDWARE: None in the chest. OTHER: No other significant finding. IMPRESSION: Cardiomegaly and vascular congestion. TECHNICAL DOCUMENTATION: JOB ID: [id number] [employer]- All Rights Reserved Reading location - IP/workstation name: [email or web address]
[2019-08-09 15:42] LABS: NT PRO BNP 5390 pg/mL (<450)
[2019-08-09 15:44] LABS: TROPONIN I < 0.012 ng/mL
[2019-08-09 17:05] LABS: APPEARANCE,URINE CLEAR; BILIRUBIN,URINE NEGATIVE (NEGATIVE); COLOR,URINE YELLOW; GLUCOSE, URINE NEGATIVE (NEGATIVE); KETONES,URINE NEGATIVE (NEGATIVE); LEUKOCYTE ESTERASE,URINE NEGATIVE (NEGATIVE); NITRITE,URINE NEGATIVE (NEGATIVE); PROTEIN,URINE 100 mg/dL (NEGATIVE); URINE SPECIFIC GRAVITY 1.008; UROBILINOGEN,URINE NEGATIVE mg/dL (<2.0)
--- NOTE | 2019-08-09 17:14 | RADIOLOGY REPORT (SQ) ---
EXAM DESCRIPTION: CTA CHEST COMPLETED DATE/TIME: 08/09/2019 4:52 pm REASON FOR STUDY: SOB, r/o PE COMPARISON: PET-CT, 07/29/2019 TECHNIQUE: CT scan of the chest performed using helical scanning technique with dynamic intravenous contrast injection. Images reviewed with lung, soft tissue and bone windows. Reconstructed coronal and sagittal MPR images reviewed. Additional 3 dimensional post-processing performed to develop Maximal Intensity Projection images (VT P). All images stored on PACS. All CT scanners at this facility use dose modulation, iterative reconstruction, and/or weight based d osing when appropriate to reduce radiation dose to as low as reasonably achievable (ALARA). [facility]: Dose Right [facility]: CareDose [facility]: Dose Right [facility]: Teradose 4D [facility]: [employer] CONTRAST TYPE AND DOSE: contrast/concentration: Isovue 350.00 mg/ml; Total Contrast Delivered: 51.0 ml; Total Saline Delivered: 57.0 ml Contrast bolus optimized for the pulmonary arteries. Not diagnostic for the aorta. RENAL FUNCTION: GFR > 60. RADIATION DOSE: CT Rad equipment meets quality standard of care and radiation dose reduction techniq ues were employed. CTDIvol: 13.2 - 14.3 mGy. DLP: 503 mGy-cm. . LIMITATIONS: None. FINDINGS: LUNGS AND PLEURA: Redemonstrated bandlike consolidation of the right lower lobe and spicul ated nodules of the bilateral upper lobes, better characterized on prior PET-CT dated 07/29/2019. Un changed small pleural effusions. AORTA AND GREAT VESSELS: No aneurysm. Contrast bolus not optimized for the aorta. HEART: Unchanged cardiomegaly and small pericardial effusion with extensive 3 vessel coronary artery calcifications. PULMONARY ARTERIES: No emboli visualized in the main pulmonary arteries or the segmental branches. HILAR AND MEDIASTINAL STRUCTURES: No identified masses or abnormal nodes. HARDWARE: None in the chest. UPPER ABDOMEN: No significant findings. Limited exam. THYROID AND OTHER SOFT TISSUES: No masses. No adenopathy. BONES: No acute or significant finding. 3D MIPS: Confirm above findings. OTHER: No other significant finding. IMPRESSION: 1. Negative examination for pulmonary embolism. 2. Redemonstrated bandlike consolidation of the right lower lobe and spiculated nodules of the bilate ral upper lobes, better characterized on prior PET-CT dated 07/29/2019. 3. Unchanged small pleural effusions. 4. Unchanged cardiomegaly and small pericardial effusion with extensive 3 vessel coronary artery calc ifications. COMMENT: Quality ID # [id number]: Final reports with documentation of one or more dose reduction techniques (e.g., Automated exposure control, adjustment of the mA and/or kV according to patient size, use of iterative reconstruction technique) TECHNICAL DOCUMENTATION: JOB ID: [id number] [employer]- All Rights Reserved Reading location - IP/workstation name: [email or web address]
--- NOTE | 2019-08-09 18:31 | PDOC H&P ---
History of Present Illness Admission Date/PCP: 08/09/19 18:09 RIKY CRUZ MD History of Present Illness: MARY KATE CHANCE is a 83 year old female past medical history of CHF, metastatic st age IV lung cancer, hypertension, diabetes, hyperlipidemia, ALEKS on BiPAP, former smoker, presenting to ED complaining of worsening of shortness of breath for the last 1 week. Shortness of breath is worse on exertion and when laying supine. Denies any recent travel, denies any recent sick contact, any upper or lower respiratory infection. Denies any fever, chest pain, nausea, abdominal pain, vomiting, diarrhea, constipation or any urinary symptoms. Endorses low appetite and weight loss for the last 6 months. In ED was noted to be tachypneic with elevated d-dimer and proBNP. CTA was negative for any PE. Hospital was consulted for admission. Past Medical History Cardiac Medical History: Reports: Congestive Heart Failure, Myocardial Infarction - [place] (1989), Hypertension Denies: Coronary Artery Disease Pulmonary Medical History: Denies: Asthma, Bronchitis, Chronic Obstructive Pulmonary Disease (COPD), Pneumonia Neurological Medical History: Denies: Seizures Endocrine Medical History: Reports: Diabetes Mellitus Type 2 Musculoskeltal Medical History: Reports: Arthritis - BACK Hematology: Denies: Anemia Past Surgical History Past Surgical History: Reports: Hysterectomy, Orthopedic Surgery - back sx, neck Social History Smoking Status: Former Smoker Electronic Cigarette use?: No Family History Family History: Reviewed & Not Pertinent Parental Family History Reviewed: Yes Children Family History Reviewed: Yes Sibling(s) Family History Reviewed.: Yes Medication/Allergy Home Medications: Amlodipine Besylate [Norvasc 5 mg Tablet] 5 mg PO DAILY 02/07/18 Aspirin [Ecotrin 81 mg EC Tablet] 81 mg PO DAILY 02/07/18 Calcium Carbonate 500 mg PO BID 02/07/18 Carvedilol [Coreg 12.5 mg Tablet] 12.5 mg PO BID 02/07/18 Cholecalciferol (Vitamin D3) [Vitamin D3] 1,000 unit PO BID 02/07/18 Ezetimibe [Zetia 10 mg Tablet] 10 mg PO DAILY 02/07/18 Garlic [Odorless Garlic] 1 tab PO DAILY 02/07/18 Ginkgo Biloba 120 mg PO DAILY 02/07/18 Ibuprofen [Motrin 800 mg Tablet] 800 mg PO BID 02/07/18 Metformin HCl [Metformin HCl ER] 500 mg PO BID 02/07/18 [place]th[place]-3 Fatty Acids/Fish Oil [[place] 3 Fish Oil Softgel] 1 cap PO DAILY 02/07/18 Pnv,Calcium 72/Iron,Carb/Folic [ Plus Iron Tablet] 1 tab PO DAILY 02/07/18 Ranitidine HCl [Zantac 150 mg Tablet] 150 mg PO BID 02/07/18 Telmisartan [Micardis 80 mg Tablet] 80 mg PO DAILY 02/07/18 Walker [Ultra-Light Rollator] 1 each MC DAILY #1 unit 07/01/19 Allergies/Adverse Reactions: cerivastatin [Cerivastatin] Allergy (Verified 08/09/19 16:15) enalapril maleate [From Vasotec] Allergy (Verified 08/09/19 16:15) enalaprilat dihydrate [From Vasotec] Allergy (Verified 08/09/19 16:15) fexofenadine HCl [From Amelia] Allergy (Verified 08/09/19 16:15) hydromorphone HCl [From Dilaudid] Allergy (Verified 08/09/19 16:15) lovastatin [From Advicor] Allergy (Verified 08/09/19 16:15) niacin [From Advicor] Allergy (Verified 08/09/19 16:15) oxycodone [Oxycodone] Allergy (Verified 08/09/19 16:15) oxycodone HCl [From Tylox] Allergy (Verified 08/09/19 16:15) simvastatin [Simvastatin] Allergy (Verified 08/09/19 16:15) astimizde Allergy (Uncoded 07/01/19 10:55) Physical Exam Vital Signs: Temp Pulse Resp BP Pulse Ox 98 F 88 21 H 105/72 97 08/09/19 14:11 08/09/19 14:11 08/09/19 16:00 08/09/19 16:01 08/09/19 16:01 Intake & Output 08/08/19 08/09/19 08/10/19 06:59 06:59 06:59 Intake Total 500 Balance 500 Weight 58 kg Results Laboratory Results: 08/09/19 14:52 08/09/19 14:52 08/09/19 08/09/19 08/09/19 14:52 14:52 16:20 WBC 5.5 RBC 3.91 Hgb 12.7 Hct 36.4 MCV 93 MCH 32.5 MCHC 34.9 RDW 13.2 Plt Count 127 L Seg Neutrophils % 60.9 Sodium 140.0 Potassium 3.7 Chloride 102 Carbon Dioxide 32 H Anion Gap 6 BUN 16 Creatinine 0.70 Est GFR ( Amer) > 60 Glucose 108 Calcium 10.0 Magnesium 1.8 Total Bilirubin 0.7 AST 25 Alkaline Phosphatase 45 Total Protein 6.4 Albumin 3.6 Urine Color YELLOW Urine Appearance CLEAR Urine pH 7.0 Ur Specific [place] 1.008 Urine Protein 100 H Urine Glucose (UA) NEGATIVE Urine Ketones NEGATIVE Urine Blood NEGATIVE Urine Nitrite NEGATIVE Ur Leukocyte Esterase NEGATIVE Urine WBC (Auto) 6 Urine RBC (Auto) 0 08/09/19 14:52 Troponin I < 0.012 NT-Pro-B Natriuret Pep 5390 H Impressions: Chest X-Ray 08/09/19 14:18 IMPRESSION: Cardiomegaly and vascular congestion. Chest/Abdomen CTA 08/09/19 15:27 IMPRESSION: 1. Negative examination for pulmonary embolism. 2. Redemonstrated bandlike consolidation of the right lower lobe and spiculated nodules of the bilateral upper lobes, better characterized on prior PET-CT dated 07/29/2019. 3. Unchanged small pleural effusions. 4. Unchanged cardiomegaly and small pericardial effusion with extensive 3 vessel coronary artery calcifications. Assessment and Plan - Diagnosis (1) Acute exacerbation of CHF (congestive heart failure) Qualifiers: Heart failure type: combined systolic and diastolic Qualified Code(s): I50.43 - Acute on chronic combined systolic (congestive) and diastolic (congestive) heart failure Is this a current diagnosis for this admission?: Yes Plan: Endorses a history of CHF. Denies any history of CAD. CHF was diagnosed in the 90s. Appears euvolemic. No JVD. No lower extremity edema. proBNP elevated on admission. Troponin negative. EKG no acute changes. Admit to telemetry, cardiac diet, fluid restriction, strict in and out, beta-b lockers, ARB, diuretics. No echo available. Will obtain an echo. Will consult cardiology based on echo finding. (2) Obstructive sleep apnea treated with BiPAP Is this a current diagnosis for this admission?: Yes Plan: History of ALEKS. On BiPAP. Restart nocturnal BiPAP. (3) Hypertension Is this a current diagnosis for this admission?: Yes Plan: Normotensive. Euvolemic. Restart home meds. Adjust meds as needed. (4) Lung cancer Qualifiers: Laterality: right Is this a current diagnosis for this admission?: Yes Plan: History of metastatic lung cancer. Status post gamma knife radiation x3 years. Oncologist Dr. Mansfield. Last PET scan 07/29/2019 showed some abnormal lymph nodes. We will consult Dr. Mansfield. (5) Former smoker Is this a current diagnosis for this admission?: Yes Plan: Encouraged abstinence. (6) Hyperlipidemia Is this a current diagnosis for this admission?: Yes Plan: Restart home meds. (7) Chest pain Qualifiers: Chest pain type: chest pain on breathing Qualified Code(s): R07.1 - Chest pain on breathing; R07.81 - Pleurodynia Is this a current diagnosis for this admission?: Yes Plan: Noncardiac. Troponins negative. EKG no acute changes. Admit telemetry. Trend troponins. Antiplatelets. Statins. Start home meds.
[2019-08-09] MEDS ORDERED: ACETAMINOPHEN 325 MG TABLET PO PRN (18:35)
[2019-08-09] MEDS ORDERED: OXYCODONE-ACETAMINOPHEN 5-325 MG TABLET PO PRN (18:35)
[2019-08-09] MEDS ORDERED: ONDANSETRON HCL INJ/PF 4 MG/2 ML SDV IV PRN (18:35)
[2019-08-09] MEDS ORDERED: IPRATROPIUM/ALBUTEROL 0.5-2.5 MG/3 ML AMPUL NEB PRN (18:35)
[2019-08-09] MEDS ORDERED: PROMETHAZINE HCL INJ 25 MG/1 ML VIAL IV PRN (18:35)
[2019-08-09] MEDS ORDERED: TEMAZEPAM 7.5 MG CAPSULE PO PRN (18:35)
[2019-08-09] MEDS ORDERED: TRAMADOL HCL 50 MG TABLET PO PRN (18:38)
[2019-08-09] MEDS ORDERED: GLUCAGON,HUMAN RECOMB 1 MG INJ IM PRN (18:46)
[2019-08-09] MEDS ORDERED: DEXTROSE 50%-WATER 25 GM/50 ML DISP.SYRIN IV PRN ×2 (18:46)
[2019-08-09] MEDS ORDERED: DEXTROSE 40% GEL 15 GM TUBE PO PRN ×2 (18:46)
[2019-08-09] MEDS: FUROSEMIDE INJ/PF 20 MG/2 ML SDV IV SCH ×2 (20:40→21:20)
[2019-08-09] MEDS: ASPIRIN 81 MG TABLET, CHEWABLE PO SCH (20:41)
[2019-08-09] MEDS: HEPARIN SOD (PORCINE) 5,000 UNIT/ML 1 ML VIAL SUBCUT SCH (21:19)
[2019-08-09] MEDS: INSULIN LISPRO 100 UNIT/ML 3 ML VIAL SUBCUT SCH (21:20)
--- NOTE | 2019-08-09 22:54 | EKG REPORT ---
SEVERITY:- ABNORMAL ECG - SINUS RHYTHM VENTRICULAR TRIGEMINY PROBABLE LEFT ATRIAL ABNORMALITY BORDERLINE LEFT AXIS DEVIATION ABNORMAL T, CONSIDER ISCHEMIA, DIFFUSE LEADS : Confirmed by: Ruba Brandt MD 09-Aug-2019 22:53:53
[2019-08-10 02:53] LABS: ABSOLUTE EOSINOPHILS # (AUTO) 0.1 10^3/uL (0.0-0.6); ABSOLUTE LYMPHOCYTES (AUTO) 1.4 10^3/uL (0.5-4.7); ABSOLUTE MONOCYTES (AUTO) 0.7 10^3/uL (0.1-1.4); ABSOLUTE NEUT (AUTO) 2.8 10^3/uL (1.7-8.2); BASOPHILS % (AUTO) 0.8 % (0-2); EOSINOPHILS % (AUTO) 2.1 % (0-6); HEMATOCRIT 38.2 % (36.0-47.0); HEMOGLOBIN 13.3 g/dL (12.0-15.5); LYMPHOCYTES % (AUTO) 27.9 % (13-45); MEAN CORPUSCULAR HEMOGLOBIN 32.2 pg (27.0-33.4); MEAN CORPUSCULAR HGB CONC 34.8 g/dL (32.0-36.0); MEAN CORPUSCULAR VOLUME 93 fl (80-97); MONOCYTES % (AUTO) 14.1 % (3-13); PLATELET COUNT 128 10^3/uL (150-450); RED BLOOD COUNT 4.12 10^6/uL (3.72-5.28); SEGMENTED NEUTROPHILS % (AUTO) 55.1 % (42-78); TOTAL CELLS COUNTED % (AUTO) 100 %
[2019-08-10 03:11] LABS: ANION GAP 7 (5-19); BLOOD UREA NITROGEN 13 mg/dL (7-20); CALCIUM 9.9 mg/dL (8.4-10.2); CARBON DIOXIDE 34 mmol/L (22-30); CHLORIDE 99 mmol/L (98-107); GLUCOSE 97 mg/dL (75-110)
[2019-08-10] MEDS ORDERED: POTASSIUM CHLORIDE 10 MEQ TABLET.ER PO ONE ×2 (04:00→08:00)
[2019-08-10 04:30] LABS: FREE T4 (FREE THYROXINE) 1.34 ng/dL (0.78-2.19)
[2019-08-10 04:44] LABS: THYROID STIMULATING HORMONE 1.92 uIU/mL (0.47-4.68)
[2019-08-10] MEDS: HEPARIN SOD (PORCINE) 5,000 UNIT/ML 1 ML VIAL SUBCUT SCH ×2 (05:06→13:18)
[2019-08-10] MEDS ORDERED: PANTOPRAZOLE SODIUM 40 MG TABLET.DR PO SCH (06:00)
[2019-08-10] MEDS: INSULIN LISPRO 100 UNIT/ML 3 ML VIAL SUBCUT SCH ×2 (07:33→11:51)
[2019-08-10] MEDS ORDERED: POTASSIUM CHLORIDE 10 MEQ TABLET.ER PO SCH (08:00)
[2019-08-10] MEDS: FUROSEMIDE INJ/PF 20 MG/2 ML SDV IV SCH (09:41)
[2019-08-10] MEDS: ASPIRIN 81 MG TABLET, CHEWABLE PO SCH (09:41)
[2019-08-10] MEDS ORDERED: CARVEDILOL 12.5 MG TABLET PO SCH (10:00)
[2019-08-10] MEDS ORDERED: LOSARTAN POTASSIUM 25 MG TABLET PO SCH (10:00)
[2019-08-10] MEDS ORDERED: DOCUSATE SODIUM 100 MG/10 ML UDC PO SCH (10:00)
[2019-08-10 15:36] VITALS: BP 113/68
--- NOTE | 2019-08-12 12:33 | PDOC DISCHARGE SUMMARY ---
Impression - Admit/DC Date/PCP Admission Date/Primary Care Provider: 08/09/19 18:09 RIKY CRUZ MD Discharge Date: 08/10/19 - Discharge Diagnosis (1) Acute exacerbation of CHF (congestive heart failure) Is this a current diagnosis for this admission?: Yes (2) Obstructive sleep apnea treated with BiPAP Is this a current diagnosis for this admission?: Yes (3) Hypertension Is this a current diagnosis for this admission?: Yes (4) Lung cancer Is this a current diagnosis for this admission?: Yes (5) Former smoker Is this a current diagnosis for this admission?: Yes (6) Hyperlipidemia Is this a current diagnosis for this admission?: Yes (7) Chest pain Is this a current diagnosis for this admission?: Yes - Additional Information Discharge Diet: As Tolerated Discharge Activity: Activity As Tolerated, Balance Activity w/Rest Referrals: RIKY CRUZ MD [Primary Care Provider] - BOBO CRANE MD [ACTIVE STAFF] - Prescriptions: Furosemide [Lasix 20 mg Tablet] 20 mg PO QAM 30 Days #30 tablet Home Medications: Amlodipine Besylate [Norvasc 5 mg Tablet] 5 mg PO DAILY 02/07/18 Aspirin [Ecotrin 81 mg EC Tablet] 81 mg PO DAILY 02/07/18 Carvedilol [Coreg 12.5 mg Tablet] 12.5 mg PO Q12 02/07/18 Cholecalciferol (Vitamin D3) [Vitamin D3] 2,000 unit PO DAILY 02/07/18 Ezetimibe [Zetia 10 mg Tablet] 10 mg PO DAILY 02/07/18 Ibuprofen [Motrin 800 mg Tablet] 800 mg PO BID 02/07/18 Metformin HCl [Metformin HCl ER] 500 mg PO BID 02/07/18 Ranitidine HCl [Zantac 150 mg Tablet] 150 mg PO BID 02/07/18 Telmisartan [Micardis 80 mg Tablet] 80 mg PO DAILY 02/07/18 Calcium Carbonate/Vitamin D3 [Oyster Shell 500-Vit D3 200 Tb] 1 tab PO BID 08/10/19 Furosemide [Lasix 20 mg Tablet] 20 mg PO QAM 30 Days #30 tablet 08/10/19 Garlic [Odorless Garlic] 1 each PO DAILY 08/10/19 Ginkgo Biloba [place] Extract [Ginkgo Biloba] 120 mg PO DAILY 08/10/19 Vit/Dha [ Multi + Dha Capsule] 1 cap PO DAILY 08/10/19 Tramadol HCl [Ultram 50 mg Tablet] 50 mg PO Q6HP PRN 08/10/19 History of Present Illiness History of Present Illness: MARY KATE CHANCE is a 83 year old female past medical history of CHF, metastatic stage IV lung cancer, hypertension, diabetes, hyperlipidemia, ALEKS on BiPAP, former smoker, presenting to ED complaining of worsening of shortness of breath for the last 1 week. Shortness of breath is worse on exertion and when laying supine. Denies any recent travel, denies any recent sick contact, any upper or lower respiratory infection. Denies any fever, chest pain, nausea, abdominal pain, vomiting, diarrhea, constipation or any urinary symptoms. Endorses low appetite and weight loss for the last 6 months. In ED was noted to be tachypneic with elevated d-dimer and proBNP. CTA was negative for any PE. Hospital was consulted for admission. Hospital Course Hospital Course: (1) Acute exacerbation of CHF (congestive heart failure) Moderate improvement of respiratory symptoms. Euvolemic. Endorsed history of CHF. Denies any history of CAD. CHF was diagnosed in the 90s. Appeared euvolemic. No JVD. No lower extremity edema. proBNP elevated on admission. Troponin negative. EKG no acute changes. CTA negative for PE. Was admitted to telemetry, cardiac diet, fluid restriction, strict in and out, beta-blockers, ARB, diuretics. (2) Obstructive sleep apnea treated with BiPAP History of ALEKS. On BiPAP. Restarted nocturnal BiPAP. (3) Hypertension Normotensive. Euvolemic. Restarted home meds. (4) Lung cancer History of metastatic lung cancer. Status post gamma knife radiation x3 years. Oncologist Dr. Mansfield. Last PET scan 07/29/2019 showed some abnormal lymph nodes. Was advised to follow-up with Dr. Mansfield. (5) Former smoker Encouraged abstinence. (6) Hyperlipidemia Restarted home meds. (7) Chest pain Noncardiac. Likely musculoskeletal. Troponins negative. EKG no acute changes. Admited telemetry. Trend ed troponins. Physical Exam Vital Signs: Temp Pulse Resp BP Pulse Ox 97.8 F 87 17 113/68 96 08/10/19 15:34 08/10/19 15:34 08/10/19 15:34 08/10/19 15:34 08/10/19 15:34 Intake & Output 08/11/19 08/12/19 08/13/19 06:59 06:59 06:59 Intake Total 120 Balance 120 General appearance: PRESENT: obese Head exam: PRESENT: atraumatic, normocephalic Respiratory exam: PRESENT: clear to auscultation dasia. ABSENT: rales, rhonchi, wheezes Cardiovascular exam: PRESENT: RRR. ABSENT: diastolic murmur, rubs, systolic murmur GI/Abdominal exam: PRESENT: normal bowel sounds, soft. ABSENT: distended, guarding, mass, organolmegaly, rebound, tenderness Neurological exam: PRESENT: alert, awake, oriented to person, oriented to place, oriented to time, oriented to situation, CN II-XII grossly intact. ABSENT: motor sensory deficit Results Laboratory Results: WBC 5.0 10^3/uL (4.0-10.5) 08/10/19 02:45 RBC 4.12 10^6/uL (3.72-5.28) 08/10/19 02:45 Hgb 13.3 g/dL (12.0-15.5) 08/10/19 02:45 Hct 38.2 % (36.0-47.0) 08/10/19 02:45 MCV 93 fl (80-97) 08/10/19 02:45 MCH 32.2 pg (27.0-33.4) 08/10/19 02:45 MCHC 34.8 g/dL (32.0-36.0) 08/10/19 02:45 RDW 13.0 % (11.5-14.0) 08/10/19 02:45 Plt Count 128 10^3/uL (150-450) L 08/10/19 02:45 Lymph % (Auto) 27.9 % (13-45) 08/10/19 02:45 Clinch % (Auto) 14.1 % (3-13) H 08/10/19 02:45 Eos % (Auto) 2.1 % (0-6) 08/10/19 02:45 Baso % (Auto) 0.8 % (0-2) 08/10/19 02:45 Absolute Neuts (auto) 2.8 10^3/uL (1.7-8.2) 08/10/19 02:45 Absolute Lymphs (auto) 1.4 10^3/uL (0.5-4.7) 08/10/19 02:45 Absolute Monos (auto) 0.7 10^3/uL (0.1-1.4) 08/10/19 02:45 Absolute Eos (auto) 0.1 10^3/uL (0.0-0.6) 08/10/19 02:45 Absolute Basos (auto) 0.0 10^3/uL (0.0-0.2) 08/10/19 02:45 Seg Neutrophils % 55.1 % (42-78) 08/10/19 02:45 D-Dimer 1.35 ug/mL (0.00-0.50) H 08/09/19 14:52 Sodium 140.2 mmol/L (137-145) 08/10/19 02:45 Potassium 4.2 mmol/L (3.6-5.0) D 08/10/19 14:15 Chloride 99 mmol/L (98-107) 08/10/19 02:45 Carbon Dioxide 34 mmol/L (22-30) H 08/10/19 02:45 Anion Gap 7 (5-19) 08/10/19 02:45 BUN 13 mg/dL (7-20) 08/10/19 02:45 Creatinine 0.53 mg/dL (0.52-1.25) 08/10/19 02:45 Est GFR ( Amer) > 60 (>60) 08/10/19 02:45 Est GFR (MDRD) Non-Af > 60 (>60) 08/10/19 02:45 Glucose 97 mg/dL (75-110) 08/10/19 02:45 POC Glucose 121 mg/dL (70-110) H 08/10/19 15:29 Calcium 9.9 mg/dL (8.4-10.2) 08/10/19 02:45 Magnesium 1.6 mg/dL (1.6-2.3) 08/10/19 02:45 Total Bilirubin 0.7 mg/dL (0.2-1.3) 08/09/19 14:52 Direct Bilirubin 0.2 mg/dL (0.0-0.4) 08/09/19 14:52 Neonat Total Bilirubin Not Reportable 08/09/19 14:52 Neonat Direct Bilirubin Not Reportable 08/09/19 14:52 Neonat Indirect Bili Not Reportable 08/09/19 14:52 AST 25 U/L (14-36) 08/09/19 14:52 ALT 18 U/L (<35) 08/09/19 14:52 Alkaline Phosphatase 45 U/L (38-126) 08/09/19 14:52 Troponin I < 0.012 ng/mL 08/10/19 11:14 NT-Pro-B Natriuret Pep 5390 pg/mL (<450) H 08/09/19 14:52 Total Protein 6.4 g/dL (6.3-8.2) 08/09/19 14:52 Albumin 3.6 g/dL (3.5-5.0) 08/09/19 14:52 TSH 1.92 uIU/mL (0.47-4.68) 08/10/19 02:45 Free T4 1.34 ng/dL (0.78-2.19) 08/10/19 02:45 Urine Color YELLOW 08/09/19 16:20 Urine Appearance CLEAR 08/09/19 16:20 Urine pH 7.0 (5.0-9.0) 08/09/19 16:20 Ur Specific Malone 1.008 08/09/19 16:20 Urine Protein 100 mg/dL (NEGATIVE) H 08/09/19 16:20 Urine Glucose (UA) NEGATIVE mg/dL (NEGATIVE) 08/09/19 16:20 Urine Ketones NEGATIVE mg/dL (NEGATIVE) 08/09/19 16:20 Urine Blood NEGATIVE (NEGATIVE) 08/09/19 16:20 Urine Nitrite NEGATIVE (NEGATIVE) 08/09/19 16:20 Urine Bilirubin NEGATIVE (NEGATIVE) 08/09/19 16:20 Urine Urobilinogen NEGATIVE mg/dL (<2.0) 08/09/19 16:20 Ur Leukocyte Esterase NEGATIVE (NEGATIVE) 08/09/19 16:20 Urine WBC (Auto) 6 /HPF 08/09/19 16:20 Urine RBC (Auto) 0 /HPF 08/09/19 16:20 U Hyaline Cast (Auto) 1 /LPF 08/09/19 16:20 Squamous Epi Cells Auto <1 /HPF 08/09/19 16:20 Urine Mucus (Auto) RARE /LPF 08/09/19 16:20 Urine Ascorbic Acid NEGATIVE (NEGATIVE) 08/09/19 16:20 08/09/19 08/09/19 08/10/19 14:52 19:00 02:45 Troponin I < 0.012 < 0.012 0.013 NT-Pro-B Natriuret Pep 5390 H 08/10/19 11:14 Troponin I < 0.012 NT-Pro-B Natriuret Pep Impressions: Chest X-Ray 08/09/19 14:18 IMPRESSION: Cardiomegaly and vascular congestion. Chest/Abdomen CTA 08/09/19 15:27 IMPRESSION: 1. Negative examination for pulmonary embolism. 2. Redemonstrated bandlike consolidation of the right lower lobe and spiculated nodules of the bilateral upper lobes, better characterized on prior PET-CT dated 07/29/2019. 3. Unchanged small pleural effusions. 4. Unchanged cardiomegaly and small pericardial effusion with extensive 3 vessel coronary artery calcifications. Stroke Is this a Stroke Patient?: No Acute Heart Failure - Is this a Heart Failure Patient?: No
== END 2019-08-10 15:50 | disposition home or self-care (01) ==
LOC: ER 13:44 → EH 18:09 → 4N 20:08
PROVIDERS: ADMIT Internal Medicine; ATTEND Internal Medicine
DX: I11.0 Hypertensive heart disease with heart failure (principal); I50.43 Acute on chronic combined systolic (congestive) and diastolic (congestive) heart failure; R07.89 Other chest pain; C78.01 Secondary malignant neoplasm of right lung; G47.33 Obstructive sleep apnea (adult) (pediatric); E78.5 Hyperlipidemia, unspecified; E11.9 Type 2 diabetes mellitus without complications; R79.89 Other specified abnormal findings of blood chemistry; R07.81 Pleurodynia; E66.9 Obesity, unspecified; M62.81 Muscle weakness (generalized); I25.2 Old myocardial infarction; Z79.82 Long term (current) use of aspirin; Z87.891 Personal history of nicotine dependence; Z79.84 Long term (current) use of oral hypoglycemic drugs; Z92.3 Personal history of irradiation
CPT/HCPCS: 93005; 99285; 96360; 36415 ×2; 84439; 82962 ×2; 83735 ×2; 84132; 84443; 85025 ×2; 80048; 80053; 81001; 84484 ×2; 85379; 83880; 71045; 71275; 93010; 94660 ×2; 97161; G0378 ×3; A9270 ×7; J1940 ×2; J7040; J3490

== ENCOUNTER → 2019-08-27 | Outpatient (CLI) | payer MEDICARE, OTHER ==
[~2019-08-27] MED LIST: REGADENOSON INJ 0.4 MG/5 ML DISP.SYRIN IV ONE
--- NOTE | 2019-08-27 23:42 | DRAGON STRESS TEST REPORT ---
ntravenous Lexiscan Cardiolite stress test using single photon emmision computerized tomography. Date of procedure: 08/27/2019.Ordering Provider: Dr. Ruba Brandt. Patient's status: Out Patient. Indication: Chest pain and cardiomyopathy.. Coronary risk factors: Age, diabetes mellitus, and hypertension. Resting EKG: Sinus Rhythm. Nonspecific IVCD. PVC. Stress EKG: No changes of ischemia. The patient no chest pain or discomfort, and there were no arrhythmias seen. Reason for termination: Protocol. Conclusions: Normal EKG and hemodynamic response to IV Lexiscan. Nuclear data: At rest the patient was given 10.75 millicuries of technetium 99m sestamibi injected intravenously. As per protocol rest non gated SPECT images were obtained. Subsequently the patient was given intravenous Lexiscan at a dose of 0.4 mg in 5 mL intravenously, followed by flush with normal saline. Subsequently the stress dose of 31.8 millicuries of technetium 99m sestamibi was injected intravenously. As per protocol stress gated images were obtained. Nuclear interpretation: Review of images showed that all segments of the myocardium had normal perfusion at rest, and normal perfusion post stress with IV Lexiscan. All segments of the myocardium had normal motion and thickening by gated study. The left ventricle was dilated in both the stress and the rest images. There was moderately reduced global hypokinesis. T. I D. ratio was normal at 1.08. There is no transient ischemic dilatation of the left ventricle. Computer read rest, and stress left ventricular ejection fraction were 43 %, and 44 %, respectively. Conclusion: 1. There is no scintigraphic evidence of Lexiscan induced myocardial ischemia. 2. There is no scintigraphic evidence of myocardial infarction/scar. 3. There is evidence of dilated cardiomyopathy with moderately reduced LV ejection fraction. Recommendations: 1. Check echo for LV ejection fraction correlation. 2. Aggressive risk factor modification, and treating the underlying co- morbidities. MTDD
== END ==
LOC: RAD 07:18
PROVIDERS: ATTEND Specialist
DX: R07.9 Chest pain, unspecified (principal)
CPT/HCPCS: 93017; 78452; A9500; J2785; Q9969

== ENCOUNTER → 2019-10-21 | Outpatient (CLI) | payer MEDICARE, OTHER ==
--- NOTE | 2019-10-21 15:00 | RADIOLOGY REPORT (SQ) ---
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 TECHNIQUE: Blood glucose level was verified. Above dose of FDG was injected intravenously. 2-D seg mented attenuation correction images were obtained from the base of the skull to the midthighs. Nonc ontrast CT images were obtained for attenuation correction and fusion with emission images. CT image s were performed without oral or intravenous contrast and are not sensitive for parenchymal lesions. A series of overlapping emission PET images were obtained. Images reviewed and manipulated at [facility] work station by the radiologist. Images stored on PACS. LIMITATIONS: None. FINDINGS: HEAD AND NECK: No areas of abnormal metabolic activity in the soft tissues of the head and neck. CHEST: 10 mm nodule in the posterior right lung apex on axial image 59 with SUV of 3.0, similar herbert red to PET-CT 07/29/2019 Right hypermetabolic lower hilar lymph node 1.6 x 1.6 cm on axial image 73 with SUV 6.5. This is sim ilar compared to prior PET-CT 07/29/2019. A right lower lobe 3 cm mass is present with surrounding fiducials, non metabolic. This is stable co mpared to previous exams. A non metabolic 4 mm pleural-based nodule right lung apex axial image 58 is unchanged since 2016. ABDOMEN AND PELVIS: No areas of abnormal metabolic activity in the abdomen or pelvis. Expected physi ologic activity is present in the genitourinary system and bowel. PROXIMAL LOWER EXTREMITIES: No areas of abnormal metabolic activity in the soft tissues of the lower extremities. BONES: There is markedly increased uptake in the T8 vertebral body, with SUV of 4.2 (was SUV of 8.6). There is expansion of the right pedicle and mild central canal narrowing at T8, similar compared to 07/29/2019. ADDITIONAL CT FINDINGS: Stones in the gallbladder. Lumbar kyphoplasty and fusion. Cardiomegaly. He avily calcified coronary arteries and aortic valve. Diffuse thyromegaly OTHER: Liver background activity 2.0 SUV. Blood pool background activity 1.5 SUV IMPRESSION: Unchanged metabolically active 10 mm nodule right lung apex. Slight decrease in metabolic activity right hilar lymph node compared to 07/29/2019. Decrease in activity of metastatic disease at the level TECHNICAL DOCUMENTATION: JOB ID: [id number] 2010 [employer]- All Rights Reserved Reading location - IP/workstation name: [email or web address]
== END ==
LOC: RAD 07:51
PROVIDERS: ATTEND Physician Assistant Medical
DX: C34.31 Malignant neoplasm of lower lobe, right bronchus or lung (principal)
CPT/HCPCS: 78815; A9552

== ENCOUNTER → 2020-02-24 | Outpatient (CLI) | payer MEDICARE, OTHER ==
--- NOTE | 2020-02-24 14:33 | RADIOLOGY REPORT (SQ) ---
EXAM DESCRIPTION: PET CT SKULL/THIGH IMAGES COMPLETED DATE/TIME: 02/24/2020 1:37 pm REASON FOR STUDY: LUNG CA (C34.31) C34.31 MALIGNANT NEOPLASM OF LOWER LOBE, RIGHT BRONCHUS OR L COMPARISON: 10/21/2019 RADIONUCLIDE AND DOSE: 10.0 mCi F18 FDG The route of agent administration: Intravenous FASTING BLOOD SUGAR: 110 mg/dl CONTRAST TYPE AND DOSE: No CT contrast given. TECHNIQUE: Blood glucose level was verified. Above dose of FDG was injected intravenously. 2-D seg mented attenuation correction images were obtained from the base of the skull to the midthighs. Nonc ontrast CT images were obtained for attenuation correction and fusion with emission images. CT image s were performed without oral or intravenous contrast and are not sensitive for parenchymal lesions. A series of overlapping emission PET images were obtained. Images reviewed and manipulated at [facility] work station by the radiologist. Images stored on PACS. LIMITATIONS: Artifact from lumbar fusion. FINDINGS: HEAD AND NECK: No areas of abnormal metabolic activity in the soft tissues of the head and neck. CHEST: Hypermetabolic 12 mm nodule right upper lobe measuring 3.85 SUV. Previously 10 mm and 3.0 SUV . Stable hypermetabolic subcarinal node measuring 7.0 SUV, previously 6.5 SUV. Unchanged morphology . Hypermetabolic focus right hilum without corresponding morphologic lesion. Presumably artifact. ABDOMEN AND PELVIS: No areas of abnormal metabolic activity in the abdomen or pelvis. Expected physi ologic activity is present in the genitourinary system and bowel. PROXIMAL LOWER EXTREMITIES: No areas of abnormal metabolic activity in the soft tissues of the lower extremities. BONES: Hypermetabolic T8 vertebral body which is unchanged. Expansile right pedicle unchanged. ADDITIONAL CT FINDINGS: No change from prior. OTHER: Blood pool 1.4 SUV. Liver background 2.0 SUV. IMPRESSION: Relatively stable. Apparent slight increase in size of hypermetabolic right upper lobe nodule probably due to technical differences. TECHNICAL DOCUMENTATION: JOB ID: [id number] [employer]- All Rights Reserved Reading location - IP/workstation name: [email or web address]
== END ==
LOC: RAD 09:05
PROVIDERS: ATTEND Internal Medicine
DX: C34.31 Malignant neoplasm of lower lobe, right bronchus or lung (principal)
CPT/HCPCS: 78815; A9552

== ENCOUNTER → 2020-06-22 | Outpatient (CLI) | payer MEDICARE, OTHER ==
--- NOTE | 2020-06-23 11:09 | RADIOLOGY REPORT (SQ) ---
EXAM DESCRIPTION: PET CT SKULL/THIGH IMAGES COMPLETED DATE/TIME: 06/22/2020 1:29 pm REASON FOR STUDY: C34.31 MALIGNANT NEOPLASM OF LOWER LOBE, RIGHT BRONCHUS OR LUNG C34.31 MALIGNANT NEOPLASM OF LOWER LOBE, RIGHT BRONCHUS OR L COMPARISON: PET-CT dated 02/24/2020 RADIONUCLIDE AND DOSE: 11.12 mCi F18 FDG The route of agent administration: Intravenous FASTING BLOOD SUGAR: 115 mg/dl CONTRAST TYPE AND DOSE: No CT contrast given. TECHNIQUE: Blood glucose level was verified. Above dose of FDG was injected intravenously. 2-D seg mented attenuation correction images were obtained from the base of the skull to the midthighs. Nonc ontrast CT images were obtained for attenuation correction and fusion with emission images. CT image s were performed without oral or intravenous contrast and are not sensitive for parenchymal lesions. A series of overlapping emission PET images were obtained. Images reviewed and manipulated at [facility] work station by the radiologist. Images stored on PACS. LIMITATIONS: None. FINDINGS: HEAD AND NECK: No areas of abnormal metabolic activity in the soft tissues of the head and neck. CHEST: Persistent uptake in the peripheral right upper lobe pulmonary nodule. SUV is 3.0. The nodul e is stable in size measuring 12 mm. There is a right hilar lymph node with an SUV is 7.4. Difficul t to quantify the actual size due to lack of IV contrast but appears increased when compared to prior study. Sub- carinal node previously described demonstrates diminished metabolic activity with an MARTINEZ V of 3.3 previously the SUV was 7. No change in the appearance of the node on CT images. ABDOMEN AND PELVIS: No areas of abnormal metabolic activity in the abdomen or pelvis. Expected physi ologic activity is present in the genitourinary system and bowel. PROXIMAL LOWER EXTREMITIES: No areas of abnormal metabolic activity in the soft tissues of the lower extremities. BONES: Increased metabolic activity in the posterior elements at T8. SUV is measured at 5.[address] im ages the soft tissue component and destructive changes in the right posterior elements in rib appear increased. ADDITIONAL CT FINDINGS: No additional significant findings on the noncontrast CT images. OTHER: No other significant findings. IMPRESSION: 1. Grossly stable uptake in the right upper lobe pulmonary nodule with an SUV of 3.0. N o change in size on CT images. 2. Increased metabolic activity in a right hilar node with an SUV of 7.4. This has increased since prior study although again without IV contrast administration size of the node cannot be accurately d etermined. 3. Decreased activity in the sub- carinal node. SUV is now 3.3 compared to 7 on prior study. 4. Increasing metabolic T8 activity in the T8 vertebral body with what appear to be increased soft t issue component and slight increase in destructive bony changes in the right posterior elements and i nvolved rib. TECHNICAL DOCUMENTATION: JOB ID: [id number] 2010 [employer]- All Rights Reserved Reading location - IP/workstation name: [email or web address]
== END ==
LOC: RAD 09:34
PROVIDERS: ATTEND Internal Medicine
DX: C34.31 Malignant neoplasm of lower lobe, right bronchus or lung (principal); R91.8 Other nonspecific abnormal finding of lung field
CPT/HCPCS: 78815; A9552